=== PATIENT | male | born 1935 | race Caucasian/White ===

== ENCOUNTER 2017-12-25 19:43 | Emergency (ER) | payer OTHER ==
[2017-12-26 00:08] LABS: ADD MAN DIFF? NO
[2017-12-26 00:15] LABS: BASOPHILS % 0.3 % (0.0-2.0); EOSINOPHILS # 0.3 10^3/ul (0.0-0.5); EOSINOPHILS % 3.4 % (0.0-7.0); HEMATOCRIT 32.8 % (42.0-52.0); HEMOGLOBIN 10.7 g/dl (14.0-18.0); LYMPHOCYTES # 1.2 10^3/ul (0.8-2.9); LYMPHOCYTES % 12.8 % (15.0-51.0); MEAN CORPUSCULAR HEMOGLOBIN 29.5 pg (29.0-33.0); MEAN CORPUSCULAR HGB CONC 32.6 g/dl (32.0-37.0); MEAN CORPUSCULAR VOLUME 90.4 fl (82.0-101.0); MEAN PLATELET VOLUME 9.2 fl (7.4-10.4); MONOCYTE # 0.9 10^3/ul (0.3-0.9); MONOCYTES % 9.6 % (0.0-11.0); NEUTROPHIL # 6.8 10^3/ul (1.6-7.5); NEUTROPHILS % 73.4 % (39.0-77.0); PLATELET COUNT 312 10^3/UL (140-415); RED BLOOD COUNT 3.63 10^6/ul (4.70-6.10); RED CELL DISTRIBUTION WIDTH 14.7 % (11.5-14.5)
[2017-12-26 00:15] LABS: WHITE BLOOD COUNT 9.2 10^3/ul (4.8-10.8)
[2017-12-26 00:33] LABS: ALANINE AMINOTRANSFERASE 41 IU/L (13-69); ALBUMIN 3.8 g/dl (3.3-4.9); ALBUMIN/GLOBULIN RATIO 1.11; ALKALINE PHOSPHATASE 99 IU/L (42-121); ANION GAP 12 (8-16); ASPARTATE AMINO TRANSFERASE 31 IU/L (15-46); BILIRUBIN,INDIRECT 0.4 mg/dl (0-1.1); BILIRUBIN,TOTAL 0.4 mg/dl (0.2-1.3); BLOOD UREA NITROGEN 21 mg/dl (7-20); CALCIUM 9.5 mg/dl (8.4-10.2); CARBON DIOXIDE 32 mmol/L (21-31); CHLORIDE 93 mmol/L (97-110); CREATININE 0.86 mg/dl (0.61-1.24); GLUCOSE 124 mg/dl (70-220); LIPASE 63 U/L (23-300); POTASSIUM 4.3 mmol/L (3.5-5.1); SODIUM 133 mmol/L (135-144); TOTAL PROTEIN 7.2 g/dl (6.1-8.1)
[2017-12-26 00:34] LABS: INR 1.15; PROTIME 14.9 Sec (11.9-14.9); PT RATIO 1.2
[2017-12-26 00:35] LABS: PARTIAL THROMBOPLASTIN TIME 31.6 Sec (25.0-35.0)
[2017-12-26] MEDS: SOD CHLORIDE 0.9% 500 ML IV (03:17)
[2017-12-26] MEDS: HYDROCODONE/APAP (5/325) TAB PO (03:18)
== END 2017-12-26 03:36 | disposition home or self-care (01) ==
LOC: E/R 19:43
DX: I82.513 Chronic embolism and thrombosis of femoral vein, bilateral (principal); E86.0 Dehydration; D64.9 Anemia, unspecified; I10 Essential (primary) hypertension; E11.9 Type 2 diabetes mellitus without complications; I25.10 Atherosclerotic heart disease of native coronary artery without angina pectoris; Z79.4 Long term (current) use of insulin; Z79.82 Long term (current) use of aspirin; Z95.1 Presence of aortocoronary bypass graft; Z87.891 Personal history of nicotine dependence
CPT/HCPCS: 36415; 80053; 83690; 85025; 85610; 85730; 93970; 99285-25

== ENCOUNTER 2018-05-16 02:41 | Emergency (ER) | payer OTHER ==
[2018-05-16] MEDS: morphine 2 MG INJ IV (03:09)
[2018-05-16] MEDS: NA PHOSPHATE/BIPHOS 133 ML ENEMA PR (03:09)
[2018-05-16] MEDS: ONDANSETRON 4 MG INJ IV (03:09)
[2018-05-16 03:10] LABS: ADD MAN DIFF? NO
[2018-05-16 03:13] LABS: WHITE BLOOD COUNT 13.3 10^3/ul (4.8-10.8)
[2018-05-16 03:13] LABS: BASOPHILS % 0.2 % (0.0-2.0); EOSINOPHILS # 0.1 10^3/ul (0.0-0.5); EOSINOPHILS % 0.5 % (0.0-7.0); HEMATOCRIT 36.5 % (42.0-52.0); HEMOGLOBIN 11.7 g/dl (14.0-18.0); LYMPHOCYTES # 0.9 10^3/ul (0.8-2.9); LYMPHOCYTES % 7.1 % (15.0-51.0); MEAN CORPUSCULAR HEMOGLOBIN 30.5 pg (29.0-33.0); MEAN CORPUSCULAR HGB CONC 32.1 g/dl (32.0-37.0); MEAN CORPUSCULAR VOLUME 95.1 fl (82.0-101.0); MEAN PLATELET VOLUME 9.9 fl (7.4-10.4); MONOCYTE # 1.1 10^3/ul (0.3-0.9); NEUTROPHIL # 11.1 10^3/ul (1.6-7.5); NEUTROPHILS % 83.7 % (39.0-77.0); PLATELET COUNT 233 10^3/UL (140-415); RED BLOOD COUNT 3.84 10^6/ul (4.70-6.10); RED CELL DISTRIBUTION WIDTH 15.9 % (11.5-14.5)
[2018-05-16 03:32] LABS: ALANINE AMINOTRANSFERASE 32 IU/L (13-69); ALBUMIN 4.2 g/dl (3.3-4.9); ALBUMIN/GLOBULIN RATIO 1.23; ALKALINE PHOSPHATASE 142 IU/L (42-121); ANION GAP 15 (8-16); ASPARTATE AMINO TRANSFERASE 26 IU/L (15-46); BILIRUBIN,INDIRECT 0.9 mg/dl (0-1.1); BILIRUBIN,TOTAL 0.9 mg/dl (0.2-1.3); BLOOD UREA NITROGEN 32 mg/dl (7-20); CALCIUM 9.6 mg/dl (8.4-10.2); CARBON DIOXIDE 28 mmol/L (21-31); CHLORIDE 102 mmol/L (97-110); CREATININE 1.28 mg/dl (0.61-1.24); GLUCOSE 139 mg/dl (70-220); LIPASE 48 U/L (23-300); POTASSIUM 4.2 mmol/L (3.5-5.1); SODIUM 141 mmol/L (135-144); TOTAL PROTEIN 7.6 g/dl (6.1-8.1)
[2018-05-16 03:46] LABS: INR 1.12; PARTIAL THROMBOPLASTIN TIME 29.8 Sec (25.0-35.0); PROTIME 14.6 Sec (11.9-14.9); PT RATIO 1.1
[2018-05-16] MEDS: HYDROmorphONE 0.5 MG/0.5 ML SYG IV (04:12)
[2018-05-16 04:50] LABS: URINE BLOOD (Dip) POC 3+ (NEGATIVE); URINE GLUCOSE (Dip) POC Negative (NEGATIVE); URINE KETONES (Dip) POC Trace (NEGATIVE); URINE LEUKOCYTE EST (Dip) POC 2+ (NEGATIVE); URINE NITRITE (Dip) POC Negative (NEGATIVE); URINE TOTAL PROTEIN POC 2+ (NEGATIVE)
[2018-05-16] MEDS: SOD CHLORIDE 0.9% 500 ML IV (05:02)
[2018-05-16] MEDS: CIPROFLOXACIN 400MG/D5W 200 ML IVPB (05:02)
== END 2018-05-16 06:54 | disposition home or self-care (01) ==
LOC: E/R 02:41
DX: K59.00 Constipation, unspecified (principal); E86.0 Dehydration; D64.9 Anemia, unspecified; I10 Essential (primary) hypertension; E11.9 Type 2 diabetes mellitus without complications; I25.10 Atherosclerotic heart disease of native coronary artery without angina pectoris; R10.84 Generalized abdominal pain; Z46.6 Encounter for fitting and adjustment of urinary device; Z95.1 Presence of aortocoronary bypass graft; Z87.891 Personal history of nicotine dependence; Z79.4 Long term (current) use of insulin; Z79.82 Long term (current) use of aspirin
CPT/HCPCS: 36415; 74176; 80053; 81003; 83690; 85025; 85610; 85730; 96374; 96375; 99285-25

== ENCOUNTER 2018-05-22 19:50 | Inpatient (IN) | payer OTHER ==
[2018-05-23] MEDS ORDERED: SOD CHLORIDE 0.9% 500 ML IV (01:00)
[2018-05-23] MEDS ORDERED: LORAZEPAM 2 MG INJ IV (01:00)
[2018-05-23] MEDS: LIDOCAINE 2% JELLY 5 ML TOP ×2 (01:08→05:18)
[2018-05-23] MEDS: HYDROmorphONE 0.5 MG/0.5 ML SYG IV ×3 (01:08→05:17)
[2018-05-23 04:42] LABS: URINE PH (Dip) POC 5.5 (5.0-8.5)
[2018-05-23 04:42] LABS: URINE BLOOD (Dip) POC 3+ (NEGATIVE); URINE GLUCOSE (Dip) POC Negative (NEGATIVE); URINE KETONES (Dip) POC 1+ (NEGATIVE); URINE LEUKOCYTE EST (Dip) POC 3+ (NEGATIVE); URINE NITRITE (Dip) POC Negative (NEGATIVE); URINE TOTAL PROTEIN POC 3+ (NEGATIVE)
[2018-05-23 04:43] LABS: WHITE BLOOD COUNT 6.9 10^3/ul (4.8-10.8)
[2018-05-23 04:43] LABS: ADD MAN DIFF? NO; BASOPHILS % 0.4 % (0.0-2.0); EOSINOPHILS # 0.2 10^3/ul (0.0-0.5); EOSINOPHILS % 3.2 % (0.0-7.0); HEMATOCRIT 34.8 % (42.0-52.0); LYMPHOCYTES # 1.1 10^3/ul (0.8-2.9); LYMPHOCYTES % 15.6 % (15.0-51.0); MEAN CORPUSCULAR HEMOGLOBIN 30.3 pg (29.0-33.0); MEAN CORPUSCULAR HGB CONC 31.6 g/dl (32.0-37.0); MEAN CORPUSCULAR VOLUME 95.9 fl (82.0-101.0); MEAN PLATELET VOLUME 9.4 fl (7.4-10.4); MONOCYTE # 0.7 10^3/ul (0.3-0.9); MONOCYTES % 9.8 % (0.0-11.0); NEUTROPHIL # 4.9 10^3/ul (1.6-7.5); NEUTROPHILS % 70.4 % (39.0-77.0); PLATELET COUNT 232 10^3/UL (140-415); RED BLOOD COUNT 3.63 10^6/ul (4.70-6.10); RED CELL DISTRIBUTION WIDTH 15.6 % (11.5-14.5)
[2018-05-23 04:58] LABS: ADD UMIC YES; UR ASCORBIC ACID NEGATIVE (NEGATIVE); UR BACTERIA FEW /HPF (NONE SEEN); UR BILIRUBIN (Dip) NEGATIVE (NEGATIVE); UR BLOOD (Dip) 3+ mg/dL (NEGATIVE); UR CLARITY CLOUDY (CLEAR); UR COLOR RED (YELLOW); UR GLUCOSE (Dip) 1+ mg/dL (NEGATIVE); UR KETONES (Dip) NEGATIVE (NEGATIVE); UR LEUKOCYTE ESTERASE (Dip) NEGATIVE Leu/ul (NEGATIVE); UR MUCUS MANY /HPF (NONE SEEN); UR NITRITE (Dip) NEGATIVE (NEGATIVE); UR RBC > 182 /HPF (0-5); UR SPECIFIC GRAVITY (Dip) 1.024 (1.003-1.030); UR TOTAL PROTEIN (Dip) 2+ mg/dl (NEGATIVE); UR UROBILINOGEN (Dip) NEGATIVE (NEGATIVE); UR WBC 6 /HPF (0-5)
[2018-05-23 05:03] LABS: INR 1.19; PARTIAL THROMBOPLASTIN TIME 31.5 Sec (25.0-35.0); PROTIME 15.3 Sec (11.9-14.9); PT RATIO 1.2
[2018-05-23 05:11] LABS: ANION GAP 12 (8-16); BLOOD UREA NITROGEN 39 mg/dl (7-20); CALCIUM 9.3 mg/dl (8.4-10.2); CARBON DIOXIDE 30 mmol/L (21-31); CHLORIDE 103 mmol/L (97-110); CREATININE 1.36 mg/dl (0.61-1.24); GLUCOSE 112 mg/dl (70-220); POTASSIUM 4.6 mmol/L (3.5-5.1); SODIUM 140 mmol/L (135-144)
[2018-05-23] MEDS: SOD CHLORIDE 0.9% 500 ML IV (05:20)
[2018-05-23] MEDS: CEFTRIAXONE 1 GM/50 ML (PMX) 50 ML IVPB (06:09)
[2018-05-23] MEDS ORDERED: LORAZEPAM 0.5 MG TAB PO (10:00)
[2018-05-23] MEDS ORDERED: NA PHOSPHATE/BIPHOS 66.6 ML ENEMA PR (10:00)
[2018-05-23] MEDS ORDERED: NACL 0.9% 3 ML SYG IV (10:00)
[2018-05-23] MEDS ORDERED: DOCUSATE SODIUM 100 MG CAP PO (10:00)
[2018-05-23] MEDS ORDERED: ONDANSETRON 4 MG INJ IV (10:00)
[2018-05-23] MEDS ORDERED: BISACODYL 10 MG SUPP PR (10:00)
[2018-05-23] MEDS: FAMOTIDINE 20 MG TAB PO (10:00)
[2018-05-23] MEDS ORDERED: HYDROCODONE/APAP (5/325) TAB PO (10:00)
[2018-05-23] MEDS ORDERED: MAGNESIUM HYDROXIDE 30ML CUP PO (10:00)
[2018-05-23] MEDS ORDERED: ACETAMINOPHEN 325 MG TAB PO (10:00)
[2018-05-23] MEDS: BISACODYL 10 MG SUPP PR (11:23)
[2018-05-23] MEDS ORDERED: INSULIN ASPART [NOVOLOG] 3 ML PEN SC ×2 (11:40→12:30)
[2018-05-23] MEDS ORDERED: PE/SHARK OIL/MO/PETROL 30 GM OINT PR (13:30)
[2018-05-23] MEDS ORDERED: INSULIN GLARGINE [LANTus] (100 UNITS/ML) SYG SC (20:00)
[2018-05-23] MEDS ORDERED: APIXABAN 5 MG TABLET PO (21:00)
[2018-05-23] MEDS ORDERED: FAMOTIDINE 20 MG TAB PO (21:00)
[2018-05-23] MEDS ORDERED: ATORVASTATIN 40 MG TAB GTB (21:00)
[2018-05-23] MEDS ORDERED: DORZOLAMIDE/TIMOLOL 10 ML OPH BOTH EYES (21:00)
[2018-05-23] MEDS ORDERED: DOXAZOSIN 1 MG TAB PO (21:00)
[2018-05-24] MEDS ORDERED: ACCU-CHEK XX (02:00)
[2018-05-24] MEDS ORDERED: CEFTRIAXONE 1 GM/50 ML (PMX) 50 ML IVPB (06:00)
[2018-05-24] MEDS ORDERED: CITALOPRAM 20 MG TAB GTB (09:00)
[2018-05-24] MEDS ORDERED: CHOLECALCIFEROL 1,000 UNIT TAB PO (09:00)
[2018-05-24] MEDS ORDERED: NON-FORMULARY/PATIENT OWN MED (Lactobacillus Acidophilus* (Lactinex*) 1 TAB) GTB (09:00)
[2018-05-24] MEDS ORDERED: LISINOPRIL 5 MG TAB PO (09:00)
[2018-05-24] MEDS ORDERED: LORATADINE 10 MG TAB PO (09:00)
[2018-05-24] MEDS ORDERED: POLYETHYLENE GLYCOL 17 GM PACKET PO (09:00)
[2018-05-24] MEDS ORDERED: CITALOPRAM 20 MG TAB PO (09:00)
[2018-05-24] MEDS ORDERED: BUPROPION (XL) 150 MG TAB PO (09:00)
[2018-05-24] MEDS ORDERED: DOCUSATE SODIUM 10 MG/ML (10ML CUP) PO (09:00)
[2018-05-24] MEDS ORDERED: AMIODARONE 200 MG TAB PO (09:00)
[2018-05-24] MEDS ORDERED: ASCORBIC ACID 500 MG TAB PO (09:00)
[2018-05-27] MEDS ORDERED: METHOTREXATE 2.5 MG TAB PO (09:00)
== END 2018-05-23 17:35 | disposition home health service (06) | DRG 699 ==
LOC: E/R 19:50 → MS1 05-23 08:32
PROC: 0T2BX0Z Change Drainage Device in Bladder, External Approach (ICD-10-PCS; principal; 2018-05-23)
DX: T83.098A Other mechanical complication of other urinary catheter, initial encounter (principal); N17.9 Acute kidney failure, unspecified; I69.951 Hemiplegia and hemiparesis following unspecified cerebrovascular disease affecting right dominant side; Y84.6 Urinary catheterization as the cause of abnormal reaction of the patient, or of later complication, without mention of misadventure at the time of the procedure; R33.9 Retention of urine, unspecified; D64.9 Anemia, unspecified; K59.00 Constipation, unspecified; I48.91 Unspecified atrial fibrillation; I25.10 Atherosclerotic heart disease of native coronary artery without angina pectoris; Z95.1 Presence of aortocoronary bypass graft; E11.9 Type 2 diabetes mellitus without complications; E78.5 Hyperlipidemia, unspecified; I10 Essential (primary) hypertension; I69.920 Aphasia following unspecified cerebrovascular disease; N40.0 Benign prostatic hyperplasia without lower urinary tract symptoms; I48.2 Chronic atrial fibrillation; F32.9 Major depressive disorder, single episode, unspecified; Y92.009 Unspecified place in unspecified non-institutional (private) residence as the place of occurrence of the external cause
CPT/HCPCS: 36415; 74176; 80048; 81001; 81003; 82962; 85025; 85610; 85730; 87086; 96374; 96375; 96376; 99285-25

== ENCOUNTER 2018-05-27 14:14 | Emergency (ER) | payer OTHER | END 2018-05-27 15:46 | disposition home or self-care (01) | LOC: E/R 14:14 | DX: N40.1 Benign prostatic hyperplasia with lower urinary tract symptoms (principal); R33.9 Retention of urine, unspecified; I10 Essential (primary) hypertension; Z79.01 Long term (current) use of anticoagulants; Z95.1 Presence of aortocoronary bypass graft | CPT/HCPCS: 76942; 99284-25 ==

== ENCOUNTER 2018-08-18 10:24 | Inpatient (IN) | payer OTHER ==
[2018-08-18 12:02] LABS: ADD MAN DIFF? NO
[2018-08-18 12:05] LABS: WHITE BLOOD COUNT 8.3 10^3/ul (4.8-10.8)
[2018-08-18 12:05] LABS: BASOPHILS % 0.4 % (0.0-2.0); EOSINOPHILS # 0.1 10^3/ul (0.0-0.5); EOSINOPHILS % 1.6 % (0.0-7.0); HEMATOCRIT 34.3 % (42.0-52.0); HEMOGLOBIN 11.1 g/dl (14.0-18.0); LYMPHOCYTES # 1.2 10^3/ul (0.8-2.9); LYMPHOCYTES % 14.3 % (15.0-51.0); MEAN CORPUSCULAR HEMOGLOBIN 29.4 pg (29.0-33.0); MEAN CORPUSCULAR HGB CONC 32.4 g/dl (32.0-37.0); MEAN PLATELET VOLUME 9.8 fl (7.4-10.4); MONOCYTE # 0.8 10^3/ul (0.3-0.9); MONOCYTES % 9.1 % (0.0-11.0); NEUTROPHIL # 6.1 10^3/ul (1.6-7.5); NEUTROPHILS % 73.5 % (39.0-77.0); PLATELET COUNT 237 10^3/UL (140-415); RED BLOOD COUNT 3.77 10^6/ul (4.70-6.10); RED CELL DISTRIBUTION WIDTH 14.9 % (11.5-14.5)
[2018-08-18] MEDS: ONDANSETRON 4 MG INJ IV (12:06)
[2018-08-18] MEDS: morphine 4 MG/ML VIAL IV (12:07)
[2018-08-18 12:24] LABS: ANION GAP 13 (8-16); BLOOD UREA NITROGEN 27 mg/dl (7-20); CALCIUM 9.3 mg/dl (8.4-10.2); CARBON DIOXIDE 29 mmol/L (21-31); CHLORIDE 98 mmol/L (97-110); CREATININE 1.08 mg/dl (0.61-1.24); GLUCOSE 114 mg/dl (70-220); INR 1.11; POTASSIUM 4.9 mmol/L (3.5-5.1); PROTIME 14.5 Sec (11.9-14.9); PT RATIO 1.1; SODIUM 135 mmol/L (135-144)
[2018-08-18 12:25] LABS: PARTIAL THROMBOPLASTIN TIME 32.1 Sec (23.0-35.0)
[2018-08-18 12:36] LABS: TROPONIN-I < 0.012 ng/ml (0.000-0.120)
[2018-08-18 13:19] LABS: ADD UMIC YES; UR ASCORBIC ACID NEGATIVE (NEGATIVE); UR BILIRUBIN (Dip) NEGATIVE (NEGATIVE); UR BLOOD (Dip) 3+ mg/dL (NEGATIVE); UR CLARITY CLOUDY (CLEAR); UR COLOR RED (YELLOW); UR GLUCOSE (Dip) NEGATIVE (NEGATIVE); UR KETONES (Dip) NEGATIVE (NEGATIVE); UR LEUKOCYTE ESTERASE (Dip) 2+ Leu/ul (NEGATIVE); UR MUCUS FEW /HPF (NONE SEEN); UR NITRITE (Dip) POSITIVE (NEGATIVE); UR NONSQUAMOUS EPITHELIAL CELL 11 /HPF (NONE SEEN); UR RBC > 182 /HPF (0-5); UR SPECIFIC GRAVITY (Dip) 1.018 (1.003-1.030); UR TOTAL PROTEIN (Dip) 2+ mg/dl (NEGATIVE); UR UROBILINOGEN (Dip) NEGATIVE (NEGATIVE); UR WBC 163 /HPF (0-5)
[2018-08-18] MEDS ORDERED: ACETAMINOPHEN 325 MG TAB PO (13:30)
[2018-08-18] MEDS ORDERED: ONDANSETRON 4 MG INJ IV ×2 (13:30→15:00)
[2018-08-18] MEDS: HYDROmorphONE 2 MG/ML SYG IV ×3 (13:46→20:56)
[2018-08-18] MEDS: CEFTRIAXONE 1 GM/50 ML (PMX) 50 ML IVPB (14:23)
[2018-08-18] MEDS ORDERED: BISACODYL 10 MG SUPP PR (15:00)
[2018-08-18] MEDS ORDERED: DOCUSATE SODIUM 100 MG CAP PO (15:00)
[2018-08-18] MEDS ORDERED: NACL 0.9% 3 ML SYG IV (15:00)
[2018-08-18] MEDS: SOD CHLORIDE 0.9% 1,000 ML IV (15:59)
[2018-08-18] MEDS: ATORVASTATIN 40 MG TAB PO (20:56)
[2018-08-18] MEDS: APIXABAN 5 MG TABLET PO (20:56)
[2018-08-18] MEDS: MELATONIN 5 MG TABLET PO (20:56)
[2018-08-18] MEDS: MYCOPHENOLATE 250 MG CAP PO (20:56)
[2018-08-18] MEDS: LACTOBACILLUS RHAMNOSUS CAP PO (21:13)
[2018-08-19] MEDS: HYDROmorphONE 2 MG/ML SYG IV ×4 (01:31→17:18)
[2018-08-19] MEDS: SOD CHLORIDE 0.9% 1,000 ML IV ×3 (05:00→20:32)
[2018-08-19] MEDS: PANTOPRAZOLE (EC) 40 MG TAB PO (06:04)
[2018-08-19 07:53] LABS: ADD MAN DIFF? NO
[2018-08-19 07:57] LABS: BASOPHILS % 0.2 % (0.0-2.0); EOSINOPHILS % 0.4 % (0.0-7.0); HEMATOCRIT 33.7 % (42.0-52.0); HEMOGLOBIN 10.5 g/dl (14.0-18.0); LYMPHOCYTES # 0.7 10^3/ul (0.8-2.9); LYMPHOCYTES % 6.8 % (15.0-51.0); MEAN CORPUSCULAR HEMOGLOBIN 28.8 pg (29.0-33.0); MEAN CORPUSCULAR HGB CONC 31.2 g/dl (32.0-37.0); MEAN CORPUSCULAR VOLUME 92.3 fl (82.0-101.0); MEAN PLATELET VOLUME 9.8 fl (7.4-10.4); NEUTROPHIL # 8.8 10^3/ul (1.6-7.5); PLATELET COUNT 242 10^3/UL (140-415); RED BLOOD COUNT 3.65 10^6/ul (4.70-6.10); RED CELL DISTRIBUTION WIDTH 14.7 % (11.5-14.5)
[2018-08-19 07:57] LABS: WHITE BLOOD COUNT 10.6 10^3/ul (4.8-10.8)
[2018-08-19 08:21] LABS: ANION GAP 10 (8-16); BLOOD UREA NITROGEN 36 mg/dl (7-20); CALCIUM 8.9 mg/dl (8.4-10.2); CARBON DIOXIDE 27 mmol/L (21-31); CHLORIDE 107 mmol/L (97-110); CREATININE 1.47 mg/dl (0.61-1.24); GLUCOSE 110 mg/dl (70-220); SODIUM 139 mmol/L (135-144)
[2018-08-19] MEDS: LORATADINE 10 MG TAB PO (08:43)
[2018-08-19] MEDS: CITALOPRAM 20 MG TAB PO (08:43)
[2018-08-19] MEDS: MYCOPHENOLATE 250 MG CAP PO ×2 (08:45→20:40)
[2018-08-19] MEDS: AMIODARONE 200 MG TAB PO (08:45)
[2018-08-19] MEDS: HYDROCODONE/APAP (5/325) TAB PO (08:46)
[2018-08-19] MEDS: LACTOBACILLUS RHAMNOSUS CAP PO ×2 (08:46→20:33)
[2018-08-19] MEDS: LISINOPRIL 20 MG TAB PO (08:46)
[2018-08-19] MEDS: BUPROPION (XL) 150 MG TAB PO (08:46)
[2018-08-19] MEDS: CHOLECALCIFEROL 1,000 UNIT TAB PO (08:46)
[2018-08-19] MEDS ORDERED: NON-FORMULARY/PATIENT OWN MED (Lactobacillus Acidophilus (Probiotic) 1 CAP) PO (09:00)
[2018-08-19] MEDS: morphine 10 MG INJ IV (09:38)
[2018-08-19] MEDS: POLYETHYLENE GLYCOL 17 GM PACKET NGT (12:05)
[2018-08-19] MEDS: hydrOXYzine HCL 25 MG TAB PO (12:07)
[2018-08-19] MEDS: oxyCODONE (CR) 15 MG TAB [oxyCONTIN] PO ×2 (12:07→20:33)
[2018-08-19] MEDS: PHENAZOPYRIDINE 200 MG TAB PO ×2 (12:22→20:32)
[2018-08-19] MEDS: CEFTRIAXONE 1 GM/50 ML (PMX) 50 ML IVPB (13:37)
[2018-08-19] MEDS: ATORVASTATIN 40 MG TAB PO (20:32)
[2018-08-19] MEDS: MELATONIN 5 MG TABLET PO (20:33)
[2018-08-20] MEDS: SOD CHLORIDE 0.9% 1,000 ML IV ×2 (04:50→15:54)
[2018-08-20] MEDS: PANTOPRAZOLE (EC) 40 MG TAB PO (06:40)
[2018-08-20] MEDS: HYDROmorphONE 2 MG/ML SYG IV ×2 (06:40→17:49)
[2018-08-20 07:35] LABS: ADD MAN DIFF? NO
[2018-08-20 07:39] LABS: BASOPHILS % 0.2 % (0.0-2.0); EOSINOPHILS # 0.1 10^3/ul (0.0-0.5); EOSINOPHILS % 0.7 % (0.0-7.0); HEMATOCRIT 30.8 % (42.0-52.0); HEMOGLOBIN 9.5 g/dl (14.0-18.0); LYMPHOCYTES # 0.9 10^3/ul (0.8-2.9); LYMPHOCYTES % 8.8 % (15.0-51.0); MEAN CORPUSCULAR HEMOGLOBIN 28.7 pg (29.0-33.0); MEAN CORPUSCULAR HGB CONC 30.8 g/dl (32.0-37.0); MEAN CORPUSCULAR VOLUME 93.1 fl (82.0-101.0); MEAN PLATELET VOLUME 9.3 fl (7.4-10.4); MONOCYTE # 0.9 10^3/ul (0.3-0.9); MONOCYTES % 9.2 % (0.0-11.0); NEUTROPHILS % 80.7 % (39.0-77.0); PLATELET COUNT 197 10^3/UL (140-415); RED BLOOD COUNT 3.31 10^6/ul (4.70-6.10); RED CELL DISTRIBUTION WIDTH 15.1 % (11.5-14.5)
[2018-08-20 07:39] LABS: WHITE BLOOD COUNT 9.9 10^3/ul (4.8-10.8)
[2018-08-20 07:58] LABS: INR 1.24; PROTIME 15.8 Sec (11.9-14.9); PT RATIO 1.2
[2018-08-20 08:12] LABS: ALANINE AMINOTRANSFERASE 37 IU/L (13-69); ALBUMIN 3.3 g/dl (3.3-4.9); ALKALINE PHOSPHATASE 112 IU/L (42-121); ANION GAP 8 (5-13); ASPARTATE AMINO TRANSFERASE 49 IU/L (15-46); BILIRUBIN,INDIRECT 0.5 mg/dl (0-1.1); BILIRUBIN,TOTAL 0.5 mg/dl (0.2-1.3); BLOOD UREA NITROGEN 46 mg/dl (7-20); CALCIUM 8.7 mg/dl (8.4-10.2); CARBON DIOXIDE 24 mmol/L (21-31); CHLORIDE 110 mmol/L (97-110); GLUCOSE 115 mg/dl (70-220); POTASSIUM 4.6 mmol/L (3.5-5.1); SODIUM 142 mmol/L (135-144); TOTAL PROTEIN 6.6 g/dl (6.1-8.1)
[2018-08-20] MEDS: MYCOPHENOLATE 250 MG CAP PO ×2 (08:58→21:22)
[2018-08-20] MEDS: CITALOPRAM 20 MG TAB PO (08:58)
[2018-08-20] MEDS: PHENAZOPYRIDINE 200 MG TAB PO ×3 (08:58→21:21)
[2018-08-20] MEDS: LACTOBACILLUS RHAMNOSUS CAP PO ×2 (08:58→21:22)
[2018-08-20] MEDS: LORATADINE 10 MG TAB PO (08:58)
[2018-08-20] MEDS: POLYETHYLENE GLYCOL 17 GM PACKET NGT (08:58)
[2018-08-20] MEDS: CHOLECALCIFEROL 1,000 UNIT TAB PO (08:58)
[2018-08-20] MEDS: BUPROPION (XL) 150 MG TAB PO (08:58)
[2018-08-20] MEDS: oxyCODONE (CR) 15 MG TAB [oxyCONTIN] PO ×2 (08:59→21:22)
[2018-08-20] MEDS: LISINOPRIL 20 MG TAB PO (09:00)
[2018-08-20] MEDS: AMIODARONE 200 MG TAB PO (09:00)
[2018-08-20] MEDS ORDERED: VANCOMYCIN IV PER PHARMACY XX (10:30)
[2018-08-20] MEDS: CEFEPIME 2GM/50 ML (PMX) 50 ML IVPB ×2 (12:11→21:22)
[2018-08-20] MEDS: VANCOMYCIN 1.25 GM in SOD CHLORIDE 0.9% 250 ML IVPB (12:51)
[2018-08-20] MEDS: ATORVASTATIN 40 MG TAB PO (21:22)
[2018-08-20] MEDS: MELATONIN 5 MG TABLET PO (21:23)
[2018-08-21] MEDS: SOD CHLORIDE 0.9% 1,000 ML IV ×4 (01:22→23:05)
[2018-08-21 06:45] LABS: ADD MAN DIFF? NO
[2018-08-21] MEDS: PANTOPRAZOLE (EC) 40 MG TAB PO (06:46)
[2018-08-21 06:55] LABS: WHITE BLOOD COUNT 8.9 10^3/ul (4.8-10.8)
[2018-08-21 06:55] LABS: BASOPHILS % 0.3 % (0.0-2.0); EOSINOPHILS # 0.2 10^3/ul (0.0-0.5); HEMATOCRIT 27.8 % (42.0-52.0); HEMOGLOBIN 8.6 g/dl (14.0-18.0); LYMPHOCYTES # 0.9 10^3/ul (0.8-2.9); LYMPHOCYTES % 10.4 % (15.0-51.0); MEAN CORPUSCULAR HGB CONC 30.9 g/dl (32.0-37.0); MEAN CORPUSCULAR VOLUME 93.6 fl (82.0-101.0); MONOCYTE # 0.7 10^3/ul (0.3-0.9); MONOCYTES % 7.6 % (0.0-11.0); NEUTROPHIL # 7.1 10^3/ul (1.6-7.5); NEUTROPHILS % 79.3 % (39.0-77.0); PLATELET COUNT 209 10^3/UL (140-415); RED BLOOD COUNT 2.97 10^6/ul (4.70-6.10); RED CELL DISTRIBUTION WIDTH 15.1 % (11.5-14.5)
[2018-08-21] MEDS ORDERED: ONDANSETRON 4 MG INJ (07:00)
[2018-08-21] MEDS ORDERED: SUCCINYLCHOLINE CHLORIDE 100 MG/5 ML SYG IV (07:00)
[2018-08-21 07:26] LABS: ANION GAP 5 (5-13); BLOOD UREA NITROGEN 41 mg/dl (7-20); CALCIUM 8.9 mg/dl (8.4-10.2); CARBON DIOXIDE 28 mmol/L (21-31); CHLORIDE 105 mmol/L (97-110); CREATININE 1.09 mg/dl (0.61-1.24); GLUCOSE 116 mg/dl (70-220); POTASSIUM 4.6 mmol/L (3.5-5.1); SODIUM 138 mmol/L (135-144)
[2018-08-21] MEDS: MYCOPHENOLATE 250 MG CAP PO ×2 (08:29→21:24)
[2018-08-21] MEDS: POLYETHYLENE GLYCOL 17 GM PACKET NGT (08:29)
[2018-08-21] MEDS: PHENAZOPYRIDINE 200 MG TAB PO ×3 (08:30→21:24)
[2018-08-21] MEDS: BUPROPION (XL) 150 MG TAB PO (08:30)
[2018-08-21] MEDS: LISINOPRIL 20 MG TAB PO (08:30)
[2018-08-21] MEDS: LACTOBACILLUS RHAMNOSUS CAP PO ×3 (08:30→21:24)
[2018-08-21] MEDS: AMIODARONE 200 MG TAB PO ×2 (08:31→08:53)
[2018-08-21] MEDS: CHOLECALCIFEROL 1,000 UNIT TAB PO ×2 (08:31→08:54)
[2018-08-21] MEDS: LORATADINE 10 MG TAB PO ×2 (08:31→08:53)
[2018-08-21] MEDS: CITALOPRAM 20 MG TAB PO ×2 (08:37→08:53)
[2018-08-21] MEDS: oxyCODONE (CR) 15 MG TAB [oxyCONTIN] PO ×2 (08:38→21:24)
[2018-08-21] MEDS: CEFEPIME 2GM/50 ML (PMX) 50 ML IVPB ×2 (08:56→21:23)
[2018-08-21] MEDS: VANCOMYCIN 500MG/NS (PMX) 100 ML IVPB (11:42)
[2018-08-21] MEDS ORDERED: MIDAZOLAM 1 MG/ML 2 ML INJ (16:23)
[2018-08-21] MEDS ORDERED: FENTAnyl 50 MCG/ML VIAL (16:23)
[2018-08-21] MEDS ORDERED: CEFAZOLIN 1 GM INJ (16:24)
[2018-08-21] MEDS ORDERED: METOCLOPRAMIDE 10 MG INJ (16:26)
[2018-08-21] MEDS ORDERED: LIDOCAINE 2% (SDV) 5 ML INJ (16:26)
[2018-08-21] MEDS ORDERED: PROPOFOL 20 ML (16:26)
[2018-08-21] MEDS ORDERED: BUPIVACAINE 0.25% (MPF) 30 ML INJ (17:37)
[2018-08-21] MEDS ORDERED: LIDOCAINE 2% (MDV) 20 ML INJ ×2 (18:04)
[2018-08-21] MEDS ORDERED: ETOMIDATE 20 MG INJ (18:11)
[2018-08-21] MEDS ORDERED: SUGAMMADEX SODIUM 200 MG/2 ML VIAL IV (18:32)
[2018-08-21] MEDS ORDERED: EPHEDrine SULFATE 50 MG/5 ML SYG IV (19:00)
[2018-08-21] MEDS ORDERED: ALBUMIN HUMAN 5% 250 ML IV (19:00)
[2018-08-21] MEDS ORDERED: FENTAnyl 50 MCG/ML VIAL IV ×2 (19:00)
[2018-08-21] MEDS ORDERED: hydrALAzine 20 MG INJ IV (19:00)
[2018-08-21] MEDS ORDERED: KETOROLAC 30 MG INJ IV (19:00)
[2018-08-21] MEDS ORDERED: IPRATROPIUM (NEB) 0.5 MG/2.5 ML AMP HHN (19:00)
[2018-08-21] MEDS ORDERED: HYDROmorphONE 1 MG/5 ML IV SYRINGE IV (19:00)
[2018-08-21] MEDS ORDERED: MIDAZOLAM 1 MG/ML 2 ML INJ IV (19:00)
[2018-08-21] MEDS ORDERED: LEVALBUTEROL (NEB) 1.25 MG/0.5 ML AMP HHN (19:00)
[2018-08-21] MEDS ORDERED: LABETALOL HCL 20MG INJ IV (19:00)
[2018-08-21] MEDS ORDERED: ONDANSETRON 4 MG INJ IV (19:00)
[2018-08-21] MEDS ORDERED: HALOPERIDOL 5 MG INJ IV (19:00)
[2018-08-21] MEDS ORDERED: LORAZEPAM 2 MG INJ IV (19:00)
[2018-08-21] MEDS ORDERED: MEPERIDINE 25 MG INJ IV (19:00)
[2018-08-21] MEDS ORDERED: DIPHENHYDRAMINE 50 MG INJ IV (19:00)
[2018-08-21] MEDS: HYDROmorphONE 1 MG/5 ML IV SYRINGE IV (19:52)
[2018-08-21] MEDS: ATORVASTATIN 40 MG TAB PO (21:23)
[2018-08-21] MEDS: MELATONIN 5 MG TABLET PO (21:23)
[2018-08-22] MEDS: HYDROmorphONE 2 MG/ML SYG IV ×4 (01:33→17:48)
[2018-08-22] MEDS: PANTOPRAZOLE (EC) 40 MG TAB PO (06:00)
[2018-08-22 06:11] LABS: ADD MAN DIFF? NO
[2018-08-22 06:14] LABS: BASOPHILS % 0.2 % (0.0-2.0); EOSINOPHILS # 0.2 10^3/ul (0.0-0.5); EOSINOPHILS % 1.7 % (0.0-7.0); HEMATOCRIT 29.6 % (42.0-52.0); HEMOGLOBIN 9.3 g/dl (14.0-18.0); LYMPHOCYTES # 0.6 10^3/ul (0.8-2.9); LYMPHOCYTES % 6.9 % (15.0-51.0); MEAN CORPUSCULAR HEMOGLOBIN 28.7 pg (29.0-33.0); MEAN CORPUSCULAR HGB CONC 31.4 g/dl (32.0-37.0); MEAN CORPUSCULAR VOLUME 91.4 fl (82.0-101.0); MEAN PLATELET VOLUME 10.2 fl (7.4-10.4); MONOCYTE # 0.7 10^3/ul (0.3-0.9); MONOCYTES % 8.1 % (0.0-11.0); NEUTROPHIL # 7.5 10^3/ul (1.6-7.5); NEUTROPHILS % 82.7 % (39.0-77.0); PLATELET COUNT 225 10^3/UL (140-415); RED BLOOD COUNT 3.24 10^6/ul (4.70-6.10); RED CELL DISTRIBUTION WIDTH 14.6 % (11.5-14.5)
[2018-08-22 06:34] LABS: ANION GAP 8 (5-13); BLOOD UREA NITROGEN 31 mg/dl (7-20); CALCIUM 8.6 mg/dl (8.4-10.2); CARBON DIOXIDE 22 mmol/L (21-31); CHLORIDE 111 mmol/L (97-110); GLUCOSE 106 mg/dl (70-220); POTASSIUM 3.9 mmol/L (3.5-5.1); SODIUM 141 mmol/L (135-144)
[2018-08-22] MEDS: SOD CHLORIDE 0.9% 1,000 ML IV ×3 (07:51→17:49)
[2018-08-22] MEDS: AMIODARONE 200 MG TAB PO (08:35)
[2018-08-22] MEDS: LACTOBACILLUS RHAMNOSUS CAP PO ×2 (08:36→21:04)
[2018-08-22] MEDS: CITALOPRAM 20 MG TAB PO (08:37)
[2018-08-22] MEDS: LORATADINE 10 MG TAB PO (08:37)
[2018-08-22] MEDS: CHOLECALCIFEROL 1,000 UNIT TAB PO (08:37)
[2018-08-22] MEDS: LISINOPRIL 20 MG TAB PO (08:38)
[2018-08-22] MEDS: CEFEPIME 2GM/50 ML (PMX) 50 ML IVPB ×2 (08:53→20:59)
[2018-08-22] MEDS: POLYETHYLENE GLYCOL 17 GM PACKET NGT (08:53)
[2018-08-22] MEDS: BUPROPION (XL) 150 MG TAB PO (09:00)
[2018-08-22] MEDS: oxyCODONE (CR) 15 MG TAB [oxyCONTIN] PO ×2 (09:00→21:02)
[2018-08-22] MEDS: PHENAZOPYRIDINE 200 MG TAB PO ×3 (09:00→21:00)
[2018-08-22] MEDS: MYCOPHENOLATE 250 MG CAP PO ×2 (09:00→21:00)
[2018-08-22] MEDS: VANCOMYCIN 500MG/NS (PMX) 100 ML IVPB (12:17)
[2018-08-22] MEDS: ATORVASTATIN 40 MG TAB PO (21:00)
[2018-08-22] MEDS: MELATONIN 5 MG TABLET PO (21:00)
[2018-08-23] MEDS: SOD CHLORIDE 0.9% 1,000 ML IV ×2 (04:13→15:48)
[2018-08-23] MEDS: PANTOPRAZOLE (EC) 40 MG TAB PO (05:30)
[2018-08-23] MEDS: HYDROCODONE/APAP (5/325) TAB PO ×3 (06:01→23:18)
[2018-08-23] MEDS: CEFEPIME 2GM/50 ML (PMX) 50 ML IVPB ×2 (09:08→20:19)
[2018-08-23] MEDS: BUPROPION (XL) 150 MG TAB PO (09:09)
[2018-08-23] MEDS: POLYETHYLENE GLYCOL 17 GM PACKET NGT (09:09)
[2018-08-23] MEDS: PHENAZOPYRIDINE 200 MG TAB PO ×3 (09:10→20:20)
[2018-08-23] MEDS: CITALOPRAM 20 MG TAB PO (09:10)
[2018-08-23] MEDS: CHOLECALCIFEROL 1,000 UNIT TAB PO (09:10)
[2018-08-23] MEDS: oxyCODONE (CR) 15 MG TAB [oxyCONTIN] PO ×2 (09:11→20:20)
[2018-08-23] MEDS: MYCOPHENOLATE 250 MG CAP PO ×2 (09:12→20:20)
[2018-08-23] MEDS: LORATADINE 10 MG TAB PO (09:12)
[2018-08-23] MEDS: AMIODARONE 200 MG TAB PO (09:12)
[2018-08-23] MEDS: LACTOBACILLUS RHAMNOSUS CAP PO ×2 (09:19→20:20)
[2018-08-23] MEDS: LISINOPRIL 20 MG TAB PO (10:42)
[2018-08-23 12:08] LABS: VANCOMYCIN,TROUGH < 5.0 ug/ml (10.0-20.0)
[2018-08-23] MEDS: VANCOMYCIN 500MG/NS (PMX) 100 ML IVPB (12:18)
[2018-08-23] MEDS: ATORVASTATIN 40 MG TAB PO (20:20)
[2018-08-23] MEDS: MELATONIN 5 MG TABLET PO (20:20)
[2018-08-23] MEDS: MAGNESIUM HYDROXIDE 30ML CUP PO (23:18)
[2018-08-23] MEDS: VANCOMYCIN 750 MG in SOD CHLORIDE 0.9% 150 ML IVPB (23:19)
[2018-08-24] MEDS: HYDROmorphONE 2 MG/ML SYG IV ×2 (01:23→05:06)
[2018-08-24] MEDS: SOD CHLORIDE 0.9% 1,000 ML IV ×4 (04:33→23:30)
[2018-08-24] MEDS: PANTOPRAZOLE (EC) 40 MG TAB PO (06:00)
[2018-08-24 06:57] LABS: ADD MAN DIFF? NO
[2018-08-24] MEDS ORDERED: NALOXONE 2 MG SYG (07:00)
[2018-08-24 07:04] LABS: BASOPHILS % 0.2 % (0.0-2.0); EOSINOPHILS # 0.2 10^3/ul (0.0-0.5); EOSINOPHILS % 2.4 % (0.0-7.0); HEMATOCRIT 27.7 % (42.0-52.0); HEMOGLOBIN 8.4 g/dl (14.0-18.0); LYMPHOCYTES # 0.7 10^3/ul (0.8-2.9); LYMPHOCYTES % 7.3 % (15.0-51.0); MEAN CORPUSCULAR HEMOGLOBIN 28.2 pg (29.0-33.0); MEAN CORPUSCULAR HGB CONC 30.3 g/dl (32.0-37.0); MEAN PLATELET VOLUME 9.9 fl (7.4-10.4); MONOCYTE # 0.7 10^3/ul (0.3-0.9); MONOCYTES % 7.8 % (0.0-11.0); NEUTROPHIL # 7.6 10^3/ul (1.6-7.5); NEUTROPHILS % 81.7 % (39.0-77.0); PLATELET COUNT 231 10^3/UL (140-415); RED BLOOD COUNT 2.98 10^6/ul (4.70-6.10); RED CELL DISTRIBUTION WIDTH 15.3 % (11.5-14.5)
[2018-08-24 07:04] LABS: WHITE BLOOD COUNT 9.2 10^3/ul (4.8-10.8)
[2018-08-24 07:25] LABS: ANION GAP 9 (5-13); BLOOD UREA NITROGEN 37 mg/dl (7-20); CALCIUM 8.9 mg/dl (8.4-10.2); CARBON DIOXIDE 22 mmol/L (21-31); CHLORIDE 111 mmol/L (97-110); CREATININE 0.94 mg/dl (0.61-1.24); GLUCOSE 138 mg/dl (70-220); SODIUM 142 mmol/L (135-144)
[2018-08-24 08:10] LABS: TROPONIN-I 0.292 ng/ml (0.000-0.120)
[2018-08-24] MEDS: LACTOBACILLUS RHAMNOSUS CAP PO ×2 (10:10→21:58)
[2018-08-24] MEDS: POLYETHYLENE GLYCOL 17 GM PACKET NGT (10:10)
[2018-08-24] MEDS: CEFEPIME 2GM/50 ML (PMX) 50 ML IVPB ×2 (10:11→21:58)
[2018-08-24] MEDS: PHENAZOPYRIDINE 200 MG TAB PO ×3 (10:12→21:58)
[2018-08-24] MEDS: BUPROPION (XL) 150 MG TAB PO (10:13)
[2018-08-24] MEDS: MYCOPHENOLATE 250 MG CAP PO ×2 (10:13→21:59)
[2018-08-24] MEDS: oxyCODONE (CR) 15 MG TAB [oxyCONTIN] PO (10:13)
[2018-08-24] MEDS: CHOLECALCIFEROL 1,000 UNIT TAB PO (10:14)
[2018-08-24] MEDS: LORATADINE 10 MG TAB PO (10:15)
[2018-08-24] MEDS: CITALOPRAM 20 MG TAB PO (10:15)
[2018-08-24] MEDS: AMIODARONE 200 MG TAB PO (10:16)
[2018-08-24] MEDS ORDERED: HYDROmorphONE 1 MG/ML SYG IV (13:00)
[2018-08-24 13:52] LABS: CREATINE KINASE 131 IU/L (23-200)
[2018-08-24 14:01] LABS: CK INDEX 2.4; CK-MB 3.19 ng/ml (0.0-2.4)
[2018-08-24 14:06] LABS: TROPONIN-I 0.286 ng/ml (0.000-0.120)
[2018-08-24] MEDS: VANCOMYCIN 750 MG in SOD CHLORIDE 0.9% 150 ML IVPB (14:48)
[2018-08-24 17:29] LABS: CREATINE KINASE 110 IU/L (23-200)
[2018-08-24 17:41] LABS: CK INDEX 2.7; CK-MB 2.93 ng/ml (0.0-2.4)
[2018-08-24] MEDS: ASPIRIN 325 MG TAB PO (21:58)
[2018-08-24] MEDS: MELATONIN 5 MG TABLET PO (21:59)
[2018-08-24] MEDS: ATORVASTATIN 40 MG TAB PO (21:59)
[2018-08-25] MEDS: VANCOMYCIN 750 MG in SOD CHLORIDE 0.9% 150 ML IVPB ×3 (00:50→23:20)
[2018-08-25] MEDS: SOD CHLORIDE 0.9% 1,000 ML IV ×3 (03:57→23:20)
[2018-08-25 06:41] LABS: ADD MAN DIFF? NO
[2018-08-25] MEDS: PANTOPRAZOLE (EC) 40 MG TAB PO (06:41)
[2018-08-25 06:48] LABS: BASOPHILS % 0.3 % (0.0-2.0); EOSINOPHILS # 0.3 10^3/ul (0.0-0.5); EOSINOPHILS % 3.9 % (0.0-7.0); HEMATOCRIT 25.4 % (42.0-52.0); HEMOGLOBIN 7.8 g/dl (14.0-18.0); LYMPHOCYTES # 0.7 10^3/ul (0.8-2.9); LYMPHOCYTES % 9.5 % (15.0-51.0); MEAN CORPUSCULAR HEMOGLOBIN 28.7 pg (29.0-33.0); MEAN CORPUSCULAR HGB CONC 30.7 g/dl (32.0-37.0); MEAN CORPUSCULAR VOLUME 93.4 fl (82.0-101.0); MEAN PLATELET VOLUME 10.1 fl (7.4-10.4); MONOCYTE # 0.9 10^3/ul (0.3-0.9); MONOCYTES % 12.2 % (0.0-11.0); NEUTROPHIL # 5.2 10^3/ul (1.6-7.5); NEUTROPHILS % 73.1 % (39.0-77.0); PLATELET COUNT 174 10^3/UL (140-415); RED BLOOD COUNT 2.72 10^6/ul (4.70-6.10); RED CELL DISTRIBUTION WIDTH 15.6 % (11.5-14.5)
[2018-08-25 06:48] LABS: WHITE BLOOD COUNT 7.1 10^3/ul (4.8-10.8)
[2018-08-25 07:14] LABS: MAGNESIUM 1.9 mg/dl (1.7-2.5)
[2018-08-25 07:14] LABS: PHOSPHORUS 2.4 mg/dl (2.5-4.9)
[2018-08-25 07:22] LABS: ANION GAP 7 (5-13); BLOOD UREA NITROGEN 34 mg/dl (7-20); CALCIUM 8.7 mg/dl (8.4-10.2); CARBON DIOXIDE 22 mmol/L (21-31); CHLORIDE 112 mmol/L (97-110); CREATININE 0.82 mg/dl (0.61-1.24); GLUCOSE 106 mg/dl (70-220); SODIUM 141 mmol/L (135-144)
[2018-08-25] MEDS: CITALOPRAM 20 MG TAB PO (09:38)
[2018-08-25] MEDS: MYCOPHENOLATE 250 MG CAP PO ×2 (09:39→20:55)
[2018-08-25] MEDS: LACTOBACILLUS RHAMNOSUS CAP PO ×2 (09:39→20:56)
[2018-08-25] MEDS: LORATADINE 10 MG TAB PO (09:39)
[2018-08-25] MEDS: BUPROPION (XL) 150 MG TAB PO (09:39)
[2018-08-25] MEDS: POLYETHYLENE GLYCOL 17 GM PACKET NGT (09:41)
[2018-08-25] MEDS: PHENAZOPYRIDINE 200 MG TAB PO ×2 (09:41→14:24)
[2018-08-25] MEDS: AMIODARONE 200 MG TAB PO (09:41)
[2018-08-25] MEDS: CHOLECALCIFEROL 1,000 UNIT TAB PO (09:41)
[2018-08-25] MEDS: CEFEPIME 2GM/50 ML (PMX) 50 ML IVPB ×2 (11:06→20:55)
[2018-08-25 12:08] LABS: VANCOMYCIN,TROUGH 11.8 ug/ml (10.0-20.0)
[2018-08-25] MEDS: ATORVASTATIN 40 MG TAB PO (20:56)
[2018-08-25] MEDS: MELATONIN 5 MG TABLET PO (20:57)
[2018-08-26] MEDS: PANTOPRAZOLE (EC) 40 MG TAB PO (06:17)
[2018-08-26] MEDS: SOD CHLORIDE 0.9% 1,000 ML IV ×2 (06:48→09:59)
[2018-08-26 08:48] LABS: ADD MAN DIFF? NO
[2018-08-26 08:56] LABS: BASOPHILS % 0.4 % (0.0-2.0); EOSINOPHILS # 0.2 10^3/ul (0.0-0.5); EOSINOPHILS % 2.4 % (0.0-7.0); HEMATOCRIT 27.7 % (42.0-52.0); HEMOGLOBIN 8.5 g/dl (14.0-18.0); LYMPHOCYTES # 0.9 10^3/ul (0.8-2.9); LYMPHOCYTES % 10.5 % (15.0-51.0); MEAN CORPUSCULAR HEMOGLOBIN 28.7 pg (29.0-33.0); MEAN CORPUSCULAR HGB CONC 30.7 g/dl (32.0-37.0); MEAN CORPUSCULAR VOLUME 93.6 fl (82.0-101.0); MEAN PLATELET VOLUME 10.1 fl (7.4-10.4); MONOCYTE # 0.8 10^3/ul (0.3-0.9); MONOCYTES % 8.8 % (0.0-11.0); NEUTROPHIL # 6.6 10^3/ul (1.6-7.5); NEUTROPHILS % 77.1 % (39.0-77.0); PLATELET COUNT 207 10^3/UL (140-415); RED BLOOD COUNT 2.96 10^6/ul (4.70-6.10); RED CELL DISTRIBUTION WIDTH 15.4 % (11.5-14.5)
[2018-08-26 08:56] LABS: WHITE BLOOD COUNT 8.5 10^3/ul (4.8-10.8)
[2018-08-26] MEDS: LACTOBACILLUS RHAMNOSUS CAP PO ×2 (08:56→21:02)
[2018-08-26] MEDS: POLYETHYLENE GLYCOL 17 GM PACKET NGT (08:56)
[2018-08-26] MEDS: CITALOPRAM 20 MG TAB PO (08:57)
[2018-08-26] MEDS: ASPIRIN 81 MG TAB PO (08:57)
[2018-08-26] MEDS: LORATADINE 10 MG TAB PO (08:57)
[2018-08-26] MEDS: MYCOPHENOLATE 250 MG CAP PO ×2 (08:58→21:02)
[2018-08-26] MEDS: BUPROPION (XL) 150 MG TAB PO (08:58)
[2018-08-26] MEDS: CHOLECALCIFEROL 1,000 UNIT TAB PO (08:58)
[2018-08-26] MEDS: AMIODARONE 200 MG TAB PO (08:58)
[2018-08-26 09:16] LABS: ANION GAP 7 (5-13); BLOOD UREA NITROGEN 27 mg/dl (7-20); CALCIUM 8.4 mg/dl (8.4-10.2); CARBON DIOXIDE 22 mmol/L (21-31); CHLORIDE 111 mmol/L (97-110); GLUCOSE 123 mg/dl (70-220); MAGNESIUM 1.9 mg/dl (1.7-2.5); POTASSIUM 4.2 mmol/L (3.5-5.1); PROTIME 14.4 Sec (11.9-14.9); PT RATIO 1.1; SODIUM 140 mmol/L (135-144)
[2018-08-26 09:17] LABS: PARTIAL THROMBOPLASTIN TIME 33.6 Sec (23.0-35.0)
[2018-08-26] MEDS: CEFEPIME 2GM/50 ML (PMX) 50 ML IVPB (10:11)
[2018-08-26] MEDS: APIXABAN 5 MG TABLET PO ×2 (10:14→21:03)
[2018-08-26] MEDS: VANCOMYCIN 750 MG in SOD CHLORIDE 0.9% 150 ML IVPB ×2 (12:47→23:20)
[2018-08-26] MEDS: LIDOCAINE 1% (MPF) 5 ML VIAL SC (14:10)
[2018-08-26] MEDS: ATORVASTATIN 40 MG TAB PO (21:02)
[2018-08-26] MEDS: MELATONIN 5 MG TABLET PO (21:02)
[2018-08-26] MEDS: CIPROFLOXACIN 400MG/D5W 200 ML IVPB (21:10)
[2018-08-27] MEDS: PANTOPRAZOLE (EC) 40 MG TAB PO (05:04)
[2018-08-27 06:17] LABS: ADD MAN DIFF? NO
[2018-08-27 06:26] LABS: BASOPHILS % 0.2 % (0.0-2.0); EOSINOPHILS # 0.1 10^3/ul (0.0-0.5); EOSINOPHILS % 0.8 % (0.0-7.0); HEMATOCRIT 27.4 % (42.0-52.0); HEMOGLOBIN 8.6 g/dl (14.0-18.0); LYMPHOCYTES # 0.8 10^3/ul (0.8-2.9); LYMPHOCYTES % 8.3 % (15.0-51.0); MEAN CORPUSCULAR HEMOGLOBIN 28.6 pg (29.0-33.0); MEAN CORPUSCULAR HGB CONC 31.4 g/dl (32.0-37.0); MEAN PLATELET VOLUME 9.8 fl (7.4-10.4); MONOCYTE # 0.7 10^3/ul (0.3-0.9); NEUTROPHIL # 7.5 10^3/ul (1.6-7.5); PLATELET COUNT 229 10^3/UL (140-415); RED BLOOD COUNT 3.01 10^6/ul (4.70-6.10); RED CELL DISTRIBUTION WIDTH 15.3 % (11.5-14.5)
[2018-08-27 06:26] LABS: WHITE BLOOD COUNT 9.2 10^3/ul (4.8-10.8)
[2018-08-27 06:40] LABS: MAGNESIUM 1.7 mg/dl (1.7-2.5)
[2018-08-27 06:40] LABS: PHOSPHORUS 2.4 mg/dl (2.5-4.9)
[2018-08-27 06:49] LABS: ANION GAP 10 (5-13); BLOOD UREA NITROGEN 23 mg/dl (7-20); CALCIUM 8.8 mg/dl (8.4-10.2); CARBON DIOXIDE 24 mmol/L (21-31); CHLORIDE 107 mmol/L (97-110); CREATININE 0.73 mg/dl (0.61-1.24); GLUCOSE 118 mg/dl (70-220); POTASSIUM 3.8 mmol/L (3.5-5.1); SODIUM 141 mmol/L (135-144)
[2018-08-27] MEDS: CIPROFLOXACIN 400MG/D5W 200 ML IVPB ×2 (08:57→21:40)
[2018-08-27] MEDS: LACTOBACILLUS RHAMNOSUS CAP PO ×2 (08:58→21:39)
[2018-08-27] MEDS: BUPROPION (XL) 150 MG TAB PO (08:58)
[2018-08-27] MEDS: POLYETHYLENE GLYCOL 17 GM PACKET NGT (08:58)
[2018-08-27] MEDS: CITALOPRAM 20 MG TAB PO (08:59)
[2018-08-27] MEDS: AMIODARONE 200 MG TAB PO (08:59)
[2018-08-27] MEDS: LORATADINE 10 MG TAB PO (08:59)
[2018-08-27] MEDS: MYCOPHENOLATE 250 MG CAP PO ×2 (08:59→21:39)
[2018-08-27] MEDS: CHOLECALCIFEROL 1,000 UNIT TAB PO (09:00)
[2018-08-27] MEDS: APIXABAN 5 MG TABLET PO ×2 (09:00→21:39)
[2018-08-27] MEDS: VANCOMYCIN 750 MG in SOD CHLORIDE 0.9% 150 ML IVPB ×2 (11:28→23:06)
[2018-08-27] MEDS: ATORVASTATIN 40 MG TAB PO (21:39)
[2018-08-27] MEDS: MELATONIN 5 MG TABLET PO (21:39)
[2018-08-28] MEDS: PANTOPRAZOLE (EC) 40 MG TAB PO (05:37)
[2018-08-28 06:08] LABS: ADD MAN DIFF? NO
[2018-08-28 06:19] LABS: WHITE BLOOD COUNT 8.6 10^3/ul (4.8-10.8)
[2018-08-28 06:19] LABS: BASOPHILS % 0.2 % (0.0-2.0); EOSINOPHILS # 0.1 10^3/ul (0.0-0.5); EOSINOPHILS % 0.9 % (0.0-7.0); HEMATOCRIT 26.3 % (42.0-52.0); HEMOGLOBIN 8.3 g/dl (14.0-18.0); LYMPHOCYTES # 0.9 10^3/ul (0.8-2.9); LYMPHOCYTES % 9.9 % (15.0-51.0); MEAN CORPUSCULAR HEMOGLOBIN 28.6 pg (29.0-33.0); MEAN CORPUSCULAR HGB CONC 31.6 g/dl (32.0-37.0); MEAN CORPUSCULAR VOLUME 90.7 fl (82.0-101.0); MEAN PLATELET VOLUME 9.7 fl (7.4-10.4); MONOCYTE # 0.8 10^3/ul (0.3-0.9); MONOCYTES % 8.7 % (0.0-11.0); NEUTROPHIL # 6.8 10^3/ul (1.6-7.5); NEUTROPHILS % 79.4 % (39.0-77.0); PLATELET COUNT 230 10^3/UL (140-415); RED CELL DISTRIBUTION WIDTH 15.3 % (11.5-14.5)
[2018-08-28 06:36] LABS: MAGNESIUM 1.7 mg/dl (1.7-2.5)
[2018-08-28 06:43] LABS: ANION GAP 5 (5-13); BLOOD UREA NITROGEN 20 mg/dl (7-20); CALCIUM 8.4 mg/dl (8.4-10.2); CARBON DIOXIDE 27 mmol/L (21-31); CHLORIDE 106 mmol/L (97-110); CREATININE 0.69 mg/dl (0.61-1.24); GLUCOSE 116 mg/dl (70-220); SODIUM 138 mmol/L (135-144)
[2018-08-28 06:50] LABS: POTASSIUM 3.7 mmol/L (3.5-5.1)
[2018-08-28] MEDS: LORATADINE 10 MG TAB PO (08:36)
[2018-08-28] MEDS: POLYETHYLENE GLYCOL 17 GM PACKET NGT (08:36)
[2018-08-28] MEDS: BUPROPION (XL) 150 MG TAB PO (08:36)
[2018-08-28] MEDS: APIXABAN 5 MG TABLET PO ×2 (08:36→20:58)
[2018-08-28] MEDS: CHOLECALCIFEROL 1,000 UNIT TAB PO (08:36)
[2018-08-28] MEDS: CITALOPRAM 20 MG TAB PO (08:36)
[2018-08-28] MEDS: MYCOPHENOLATE 250 MG CAP PO ×2 (08:36→21:02)
[2018-08-28] MEDS: LACTOBACILLUS RHAMNOSUS CAP PO ×2 (08:36→21:01)
[2018-08-28] MEDS: AMIODARONE 200 MG TAB PO (08:37)
[2018-08-28] MEDS: CIPROFLOXACIN 400MG/D5W 200 ML IVPB ×2 (09:12→21:14)
[2018-08-28] MEDS: VANCOMYCIN 750 MG in SOD CHLORIDE 0.9% 150 ML IVPB (13:09)
[2018-08-28] MEDS: ATORVASTATIN 40 MG TAB PO (21:00)
[2018-08-28] MEDS: MELATONIN 5 MG TABLET PO (21:01)
[2018-08-28] MEDS: ALBUTEROL 0.083% (NEB) 2.5 MG/3 ML AMP NEB (22:46)
[2018-08-29] MEDS: VANCOMYCIN 750 MG in SOD CHLORIDE 0.9% 150 ML IVPB ×2 (00:39→12:57)
[2018-08-29] MEDS: PANTOPRAZOLE (EC) 40 MG TAB PO ×2 (07:37→17:25)
[2018-08-29 07:54] LABS: ANION GAP 5 (5-13); BLOOD UREA NITROGEN 17 mg/dl (7-20); CALCIUM 8.5 mg/dl (8.4-10.2); CARBON DIOXIDE 28 mmol/L (21-31); CHLORIDE 104 mmol/L (97-110); CREATININE 0.73 mg/dl (0.61-1.24); GLUCOSE 114 mg/dl (70-220); POTASSIUM 3.6 mmol/L (3.5-5.1); SODIUM 137 mmol/L (135-144)
[2018-08-29 07:55] LABS: MAGNESIUM 1.6 mg/dl (1.7-2.5)
[2018-08-29] MEDS: CIPROFLOXACIN 400MG/D5W 200 ML IVPB ×2 (08:41→21:09)
[2018-08-29] MEDS: POLYETHYLENE GLYCOL 17 GM PACKET NGT (09:36)
[2018-08-29] MEDS: LORATADINE 10 MG TAB PO (09:36)
[2018-08-29] MEDS: MYCOPHENOLATE 250 MG CAP PO ×2 (09:37→20:55)
[2018-08-29] MEDS: CHOLECALCIFEROL 1,000 UNIT TAB PO (09:37)
[2018-08-29] MEDS: APIXABAN 5 MG TABLET PO ×2 (09:37→20:57)
[2018-08-29] MEDS: BUPROPION (XL) 150 MG TAB PO (09:37)
[2018-08-29] MEDS: LACTOBACILLUS RHAMNOSUS CAP PO ×2 (09:37→20:56)
[2018-08-29] MEDS: CITALOPRAM 20 MG TAB PO (09:38)
[2018-08-29] MEDS: AMIODARONE 200 MG TAB PO (09:38)
[2018-08-29] MEDS: MAGNESIUM SULFATE 2 GM/50 ML 50 ML IVPB (10:56)
[2018-08-29] MEDS: hydrALAzine 20 MG INJ IV (15:29)
[2018-08-29] MEDS: ALBUTEROL 0.083% (NEB) 2.5 MG/3 ML AMP NEB ×2 (16:18→16:33)
[2018-08-29 17:40] LABS: CREATINE KINASE 57 IU/L (23-200)
[2018-08-29 17:53] LABS: CK INDEX 3.7; CK-MB 2.09 ng/ml (0.0-2.4); TROPONIN-I 0.019 ng/ml (0.000-0.120)
[2018-08-29] MEDS: FUROSEMIDE 40 MG INJ IV (20:55)
[2018-08-29] MEDS: MELATONIN 5 MG TABLET PO (20:57)
[2018-08-29] MEDS: ATORVASTATIN 40 MG TAB PO (20:57)
[2018-08-30] MEDS: VANCOMYCIN 750 MG in SOD CHLORIDE 0.9% 150 ML IVPB ×2 (00:18→12:37)
[2018-08-30] MEDS: BARIUM SULFATE 135 ML (E-Z HD) PO ×2 (00:21→00:22)
[2018-08-30] MEDS: SIMETH/SOD BICARB/CIT AC PKT (E-Z- GAS II) PO (00:22)
[2018-08-30] MEDS: FUROSEMIDE 40 MG INJ IV ×2 (06:15→16:08)
[2018-08-30] MEDS: CIPROFLOXACIN 500 MG TAB PO (06:16)
[2018-08-30] MEDS: PANTOPRAZOLE (EC) 40 MG TAB PO (06:16)
[2018-08-30 07:01] LABS: ADD MAN DIFF? NO
[2018-08-30 07:09] LABS: BASOPHILS % 0.2 % (0.0-2.0); EOSINOPHILS # 0.1 10^3/ul (0.0-0.5); EOSINOPHILS % 1.4 % (0.0-7.0); HEMATOCRIT 26.4 % (42.0-52.0); HEMOGLOBIN 8.3 g/dl (14.0-18.0); LYMPHOCYTES # 0.8 10^3/ul (0.8-2.9); LYMPHOCYTES % 8.7 % (15.0-51.0); MEAN CORPUSCULAR HEMOGLOBIN 28.3 pg (29.0-33.0); MEAN CORPUSCULAR HGB CONC 31.4 g/dl (32.0-37.0); MEAN CORPUSCULAR VOLUME 90.1 fl (82.0-101.0); MEAN PLATELET VOLUME 9.6 fl (7.4-10.4); MONOCYTE # 0.7 10^3/ul (0.3-0.9); NEUTROPHIL # 7.9 10^3/ul (1.6-7.5); NEUTROPHILS % 81.8 % (39.0-77.0); PLATELET COUNT 240 10^3/UL (140-415); RED BLOOD COUNT 2.93 10^6/ul (4.70-6.10); RED CELL DISTRIBUTION WIDTH 15.2 % (11.5-14.5)
[2018-08-30 07:09] LABS: WHITE BLOOD COUNT 9.6 10^3/ul (4.8-10.8)
[2018-08-30 07:43] LABS: MAGNESIUM 1.8 mg/dl (1.7-2.5)
[2018-08-30 07:47] LABS: ANION GAP 6 (5-13); BLOOD UREA NITROGEN 17 mg/dl (7-20); CALCIUM 8.3 mg/dl (8.4-10.2); CARBON DIOXIDE 31 mmol/L (21-31); CHLORIDE 100 mmol/L (97-110); CREATININE 0.78 mg/dl (0.61-1.24); GLUCOSE 104 mg/dl (70-220); POTASSIUM 3.4 mmol/L (3.5-5.1); SODIUM 137 mmol/L (135-144)
[2018-08-30] MEDS: APIXABAN 5 MG TABLET PO (09:55)
[2018-08-30] MEDS: LACTOBACILLUS RHAMNOSUS CAP PO (09:55)
[2018-08-30] MEDS: POTASSIUM CHLORIDE 20 MEQ POWDER FOR ORAL SOLN PO ×2 (09:55→12:40)
[2018-08-30] MEDS: POLYETHYLENE GLYCOL 17 GM PACKET NGT (09:55)
[2018-08-30] MEDS: CITALOPRAM 20 MG TAB PO (09:55)
[2018-08-30] MEDS: BUPROPION (XL) 150 MG TAB PO (09:55)
[2018-08-30] MEDS: MYCOPHENOLATE 250 MG CAP PO (09:55)
[2018-08-30] MEDS: MAGNESIUM SULFATE 2 GM/50 ML 50 ML IVPB (09:55)
[2018-08-30] MEDS: FUROSEMIDE 40 MG TAB PO (09:55)
[2018-08-30] MEDS: LORATADINE 10 MG TAB PO (09:55)
[2018-08-30] MEDS: CHOLECALCIFEROL 1,000 UNIT TAB PO (09:55)
[2018-08-30] MEDS: AMIODARONE 200 MG TAB PO (09:56)
[2018-08-30] MEDS: HYDROmorphONE 4 MG TAB PO (14:40)
== END 2018-08-30 18:45 | DRG 698 ==
LOC: PP2 08-19 04:45 → TEL 08-24 08:12 → E/R 10:24 → PP2 13:16
PROC: 0T9B30Z Drainage of Bladder with Drainage Device, Percutaneous Approach (ICD-10-PCS; principal; 2018-08-21 17:30)
PROC: 3C1ZX8Z Irrigation of Indwelling Device using Irrigating Substance, External Approach (ICD-10-PCS; 2018-08-21 18:07)
PROC: 02HV33Z Insertion of Infusion Device into Superior Vena Cava, Percutaneous Approach (ICD-10-PCS; 2018-08-21 18:07)
PROC: B548ZZA Ultrasonography of Superior Vena Cava, Guidance (ICD-10-PCS; 2018-08-21 18:07)
DX: T83.511A Infection and inflammatory reaction due to indwelling urethral catheter, initial encounter (principal); G92 Toxic encephalopathy; I21.A1 Myocardial infarction type 2; I50.33 Acute on chronic diastolic (congestive) heart failure; I69.951 Hemiplegia and hemiparesis following unspecified cerebrovascular disease affecting right dominant side; N17.9 Acute kidney failure, unspecified; N30.01 Acute cystitis with hematuria; I48.0 Paroxysmal atrial fibrillation; I95.9 Hypotension, unspecified; I11.0 Hypertensive heart disease with heart failure; R06.03 Acute respiratory distress; I73.9 Peripheral vascular disease, unspecified; Z95.1 Presence of aortocoronary bypass graft; I69.921 Dysphasia following unspecified cerebrovascular disease; I69.922 Dysarthria following unspecified cerebrovascular disease; B96.5 Pseudomonas (aeruginosa) (mallei) (pseudomallei) as the cause of diseases classified elsewhere; B95.62 Methicillin resistant Staphylococcus aureus infection as the cause of diseases classified elsewhere; L40.9 Psoriasis, unspecified; I25.10 Atherosclerotic heart disease of native coronary artery without angina pectoris; K21.9 Gastro-esophageal reflux disease without esophagitis; N40.1 Benign prostatic hyperplasia with lower urinary tract symptoms; R33.8 Other retention of urine; E78.5 Hyperlipidemia, unspecified; N45.3 Epididymo-orchitis; K57.30 Diverticulosis of large intestine without perforation or abscess without bleeding; K43.9 Ventral hernia without obstruction or gangrene; T40.605A Adverse effect of unspecified narcotics, initial encounter; R09.02 Hypoxemia; B95.2 Enterococcus as the cause of diseases classified elsewhere; Z79.82 Long term (current) use of aspirin; Z79.02 Long term (current) use of antithrombotics/antiplatelets; Z98.62 Peripheral vascular angioplasty status; Z87.891 Personal history of nicotine dependence; Z86.718 Personal history of other venous thrombosis and embolism
CPT/HCPCS: 36415; 36569; 71045; 74176; 74230; 76856; 76937; 80048; 80053; 80202; 81001; 82550; 82553; 82962; 83605; 83735; 84100; 84484; 85025; 85610; 85730; 87040; 87086; 92526; 92610; 92611; 93005; 93306; 94640; 96374; 96375; 97110; 97163; 97530; 99285-25

== ENCOUNTER → 2018-09-10 | Emergency (ER) | payer OTHER ==
[2018-09-10] MEDS: ONDANSETRON 4 MG INJ IV (22:34)
[2018-09-10] MEDS: HYDROmorphONE 2 MG/ML SYG IV (22:34)
[2018-09-10 22:35] LABS: ADD MAN DIFF? NO
[2018-09-10 22:39] LABS: WHITE BLOOD COUNT 8.6 10^3/ul (4.8-10.8)
[2018-09-10 22:39] LABS: BASOPHIL # 0.1 10^3/ul (0.0-0.1); BASOPHILS % 0.6 % (0.0-2.0); EOSINOPHILS # 0.3 10^3/ul (0.0-0.5); EOSINOPHILS % 3.3 % (0.0-7.0); HEMATOCRIT 33.1 % (42.0-52.0); HEMOGLOBIN 10.7 g/dl (14.0-18.0); LYMPHOCYTES # 1.2 10^3/ul (0.8-2.9); LYMPHOCYTES % 14.1 % (15.0-51.0); MEAN CORPUSCULAR HGB CONC 32.3 g/dl (32.0-37.0); MEAN CORPUSCULAR VOLUME 86.6 fl (82.0-101.0); MEAN PLATELET VOLUME 9.5 fl (7.4-10.4); MONOCYTE # 0.7 10^3/ul (0.3-0.9); MONOCYTES % 8.1 % (0.0-11.0); NEUTROPHIL # 6.3 10^3/ul (1.6-7.5); NEUTROPHILS % 73.3 % (39.0-77.0); PLATELET COUNT 282 10^3/UL (140-415); RED BLOOD COUNT 3.82 10^6/ul (4.70-6.10); RED CELL DISTRIBUTION WIDTH 14.7 % (11.5-14.5)
[2018-09-10 22:59] LABS: ALANINE AMINOTRANSFERASE 53 IU/L (13-69); ALBUMIN/GLOBULIN RATIO 0.95; ALKALINE PHOSPHATASE 130 IU/L (42-121); ANION GAP 11 (5-13); ASPARTATE AMINO TRANSFERASE 31 IU/L (15-46); BILIRUBIN,INDIRECT 0.3 mg/dl (0-1.1); BILIRUBIN,TOTAL 0.3 mg/dl (0.2-1.3); BLOOD UREA NITROGEN 37 mg/dl (7-20); CALCIUM 9.3 mg/dl (8.4-10.2); CARBON DIOXIDE 29 mmol/L (21-31); CHLORIDE 94 mmol/L (97-110); CREATININE 2.14 mg/dl (0.61-1.24); GLUCOSE 117 mg/dl (70-220); INR 1.21; POTASSIUM 5.3 mmol/L (3.5-5.1); PROTIME 15.5 Sec (11.9-14.9); PT RATIO 1.2; SODIUM 134 mmol/L (135-144); TOTAL PROTEIN 8.2 g/dl (6.1-8.1)
[2018-09-10 23:01] LABS: PARTIAL THROMBOPLASTIN TIME 33.2 Sec (23.0-35.0)
== END | disposition home or self-care (01) ==
LOC: E/R 21:57
DX: R33.9 Retention of urine, unspecified (principal); R31.9 Hematuria, unspecified; Z95.1 Presence of aortocoronary bypass graft; Z86.73 Personal history of transient ischemic attack (TIA), and cerebral infarction without residual deficits
CPT/HCPCS: 80053; 85025; 85610; 85730; 96374; 96375; 99284-25

== ENCOUNTER 2018-09-16 08:39 | Observation (INO) | payer OTHER ==
[2018-09-16 09:23] LABS: ADD MAN DIFF? NO
[2018-09-16 09:29] LABS: BASOPHILS % 0.4 % (0.0-2.0); EOSINOPHILS # 0.1 10^3/ul (0.0-0.5); EOSINOPHILS % 1.6 % (0.0-7.0); HEMATOCRIT 30.4 % (42.0-52.0); HEMOGLOBIN 9.5 g/dl (14.0-18.0); LYMPHOCYTES # 0.7 10^3/ul (0.8-2.9); LYMPHOCYTES % 13.9 % (15.0-51.0); MEAN CORPUSCULAR HEMOGLOBIN 27.2 pg (29.0-33.0); MEAN CORPUSCULAR HGB CONC 31.3 g/dl (32.0-37.0); MEAN CORPUSCULAR VOLUME 87.1 fl (82.0-101.0); MEAN PLATELET VOLUME 9.2 fl (7.4-10.4); MONOCYTE # 0.5 10^3/ul (0.3-0.9); MONOCYTES % 9.5 % (0.0-11.0); NEUTROPHIL # 3.7 10^3/ul (1.6-7.5); PLATELET COUNT 214 10^3/UL (140-415); RED BLOOD COUNT 3.49 10^6/ul (4.70-6.10); RED CELL DISTRIBUTION WIDTH 14.6 % (11.5-14.5)
[2018-09-16] MEDS: ONDANSETRON 4 MG INJ IV (09:39)
[2018-09-16] MEDS: HYDROmorphONE 1 MG/ML SYG IV (09:40)
[2018-09-16] MEDS: CEFTRIAXONE 1 GM/50 ML (PMX) 50 ML IVPB (09:40)
[2018-09-16] MEDS: SODIUM CHLORIDE 0.9% 1L BAG IV* (09:41)
[2018-09-16 09:49] LABS: ALANINE AMINOTRANSFERASE 43 IU/L (13-69); ALBUMIN 3.9 g/dl (3.3-4.9); ALKALINE PHOSPHATASE 116 IU/L (42-121); ANION GAP 8 (5-13); ASPARTATE AMINO TRANSFERASE 32 IU/L (15-46); BILIRUBIN,INDIRECT 0.4 mg/dl (0-1.1); BILIRUBIN,TOTAL 0.4 mg/dl (0.2-1.3); BLOOD UREA NITROGEN 26 mg/dl (7-20); CALCIUM 9.5 mg/dl (8.4-10.2); CARBON DIOXIDE 32 mmol/L (21-31); CHLORIDE 95 mmol/L (97-110); CREATININE 1.61 mg/dl (0.61-1.24); GLUCOSE 92 mg/dl (70-220); INR 1.15; LIPASE 92 U/L (23-300); POTASSIUM 4.8 mmol/L (3.5-5.1); PROTIME 14.9 Sec (11.9-14.9); PT RATIO 1.2; SODIUM 135 mmol/L (135-144); TOTAL PROTEIN 7.3 g/dl (6.1-8.1)
[2018-09-16 09:50] LABS: PARTIAL THROMBOPLASTIN TIME 33.2 Sec (23.0-35.0)
[2018-09-16 10:00] LABS: TROPONIN-I < 0.012 ng/ml (0.000-0.120)
[2018-09-16 10:26] LABS: ADD UMIC YES; UR AMORPHOUS CRYSTAL FEW /HPF (NONE SEEN); UR ASCORBIC ACID NEGATIVE (NEGATIVE); UR BACTERIA MANY /HPF (NONE SEEN); UR BILIRUBIN (Dip) NEGATIVE (NEGATIVE); UR BLOOD (Dip) 2+ mg/dL (NEGATIVE); UR CLARITY SLIGHTLY CLOUDY (CLEAR); UR COLOR YELLOW (YELLOW); UR GLUCOSE (Dip) NEGATIVE (NEGATIVE); UR KETONES (Dip) NEGATIVE (NEGATIVE); UR LEUKOCYTE ESTERASE (Dip) 3+ Leu/ul (NEGATIVE); UR MUCUS FEW /HPF (NONE SEEN); UR NITRITE (Dip) NEGATIVE (NEGATIVE); UR RBC 14 /HPF (0-5); UR SPECIFIC GRAVITY (Dip) 1.014 (1.003-1.030); UR TOTAL PROTEIN (Dip) 1+ mg/dl (NEGATIVE); UR UROBILINOGEN (Dip) NEGATIVE (NEGATIVE); UR WBC 43 /HPF (0-5)
[2018-09-16] MEDS ORDERED: ACETAMINOPHEN 325 MG TAB PO ×2 (12:30→13:00)
[2018-09-16] MEDS ORDERED: ONDANSETRON 4 MG INJ IV ×2 (12:30→13:00)
[2018-09-16] MEDS: AMPICILLIN/SULB 3 GM/NS (PMX) 100 ML IVPB (12:48)
[2018-09-16] MEDS ORDERED: hydrALAzine 20 MG INJ IV (13:00)
[2018-09-16] MEDS ORDERED: ALBUTEROL 0.083% (NEB) 2.5 MG/3 ML AMP NEB (13:00)
[2018-09-16] MEDS ORDERED: NACL 0.9% 3 ML SYG IV (13:00)
[2018-09-16] MEDS: metroNIDAZOLE 500 MG/NS (PMX) 100 ML IVPB ×2 (14:11→20:25)
[2018-09-16] MEDS: SOD CHLORIDE 0.9% 1,000 ML IV (14:11)
[2018-09-16] MEDS: PANTOPRAZOLE 40 MG INJ IV (14:11)
[2018-09-16 14:47] LABS: LACTIC ACID 0.8 mmol/L (0.5-2.0)
[2018-09-16] MEDS: ENOXAPARIN 80 MG/0.8 ML SYG SC (15:47)
[2018-09-16] MEDS: CIPROFLOXACIN 400MG/D5W 200 ML IVPB (21:30)
[2018-09-17] MEDS: metroNIDAZOLE 500 MG/NS (PMX) 100 ML IVPB (05:21)
[2018-09-17] MEDS: PANTOPRAZOLE 40 MG INJ IV (05:21)
[2018-09-17] MEDS: AMOXICILLIN/CLAV 875 MG TAB PO (09:24)
[2018-09-17] MEDS: APIXABAN 5 MG TABLET PO (09:24)
[2018-09-17] MEDS: AMIODARONE 200 MG TAB PO (09:25)
[2018-09-17] MEDS: MYCOPHENOLATE 250 MG CAP PO (09:25)
[2018-09-17 10:47] LABS: ADD MAN DIFF? NO
[2018-09-17 10:52] LABS: ABNORMAL IP MESSAGE 1; BASOPHILS % 0.7 % (0.0-2.0); EOSINOPHILS # 0.1 10^3/ul (0.0-0.5); EOSINOPHILS % 3.3 % (0.0-7.0); HEMATOCRIT 27.1 % (42.0-52.0); HEMOGLOBIN 8.3 g/dl (14.0-18.0); LYMPHOCYTES # 0.6 10^3/ul (0.8-2.9); LYMPHOCYTES % 13.1 % (15.0-51.0); MEAN CORPUSCULAR HEMOGLOBIN 27.1 pg (29.0-33.0); MEAN CORPUSCULAR HGB CONC 30.6 g/dl (32.0-37.0); MEAN CORPUSCULAR VOLUME 88.6 fl (82.0-101.0); MEAN PLATELET VOLUME 9.8 fl (7.4-10.4); MONOCYTE # 0.4 10^3/ul (0.3-0.9); MONOCYTES % 9.1 % (0.0-11.0); NEUTROPHIL # 3.1 10^3/ul (1.6-7.5); NEUTROPHILS % 73.1 % (39.0-77.0); PLATELET COUNT 167 10^3/UL (140-415); POSITIVE DIFF @See below; RED BLOOD COUNT 3.06 10^6/ul (4.70-6.10); RED CELL DISTRIBUTION WIDTH 14.7 % (11.5-14.5)
[2018-09-17 10:52] LABS: WHITE BLOOD COUNT 4.2 10^3/ul (4.8-10.8)
[2018-09-17 11:17] LABS: ANION GAP 5 (5-13); BLOOD UREA NITROGEN 17 mg/dl (7-20); CALCIUM 8.5 mg/dl (8.4-10.2); CARBON DIOXIDE 28 mmol/L (21-31); CHLORIDE 101 mmol/L (97-110); CREATININE 1.41 mg/dl (0.61-1.24); GLUCOSE 115 mg/dl (70-220); MAGNESIUM 1.6 mg/dl (1.7-2.5); POTASSIUM 3.9 mmol/L (3.5-5.1); SODIUM 134 mmol/L (135-144)
[2018-09-17] MEDS: MAGNESIUM SULFATE 2 GM/50 ML 50 ML IVPB (13:42)
[2018-09-17] MEDS: HYDROmorphONE 1 MG/ML SYG IV (18:35)
[2018-09-17] MEDS ORDERED: SOD CHLORIDE 0.9% 1,000 ML IV (19:00)
== END 2018-09-17 18:40 | disposition home health service (06) ==
LOC: E/R 08:39 → PP2 12:08
DX: K57.92 Diverticulitis of intestine, part unspecified, without perforation or abscess without bleeding (principal); N30.90 Cystitis, unspecified without hematuria; N17.9 Acute kidney failure, unspecified; Z86.718 Personal history of other venous thrombosis and embolism; Z86.73 Personal history of transient ischemic attack (TIA), and cerebral infarction without residual deficits; K52.9 Noninfective gastroenteritis and colitis, unspecified; I10 Essential (primary) hypertension; I48.91 Unspecified atrial fibrillation; L40.9 Psoriasis, unspecified; R11.2 Nausea with vomiting, unspecified; N40.0 Benign prostatic hyperplasia without lower urinary tract symptoms; Z96.0 Presence of urogenital implants; R33.9 Retention of urine, unspecified
CPT/HCPCS: 36415; 71045; 74176; 80048; 80076; 81001; 83605; 83690; 83735; 84484; 85025; 85610; 85730; 87040; 87081; 87086; 93005; 96374; 96375; 99285-25; G0378

== ENCOUNTER 2018-11-16 17:56 | Observation (INO) | payer OTHER ==
[2018-11-16 18:44] LABS: ADD MAN DIFF? NO
[2018-11-16] MEDS: FENTAnyl 50 MCG/ML VIAL IV ×2 (18:47→19:18)
[2018-11-16 18:49] LABS: BASOPHILS % 0.3 % (0.0-2.0); EOSINOPHILS # 0.1 10^3/ul (0.0-0.5); EOSINOPHILS % 1.3 % (0.0-7.0); HEMATOCRIT 29.1 % (42.0-52.0); HEMOGLOBIN 9.3 g/dl (14.0-18.0); LYMPHOCYTES # 1.1 10^3/ul (0.8-2.9); MEAN CORPUSCULAR VOLUME 87.7 fl (82.0-101.0); MEAN PLATELET VOLUME 9.6 fl (7.4-10.4); MONOCYTE # 0.7 10^3/ul (0.3-0.9); MONOCYTES % 7.7 % (0.0-11.0); NEUTROPHIL # 7.6 10^3/ul (1.6-7.5); NEUTROPHILS % 79.2 % (39.0-77.0); PLATELET COUNT 330 10^3/UL (140-415); RED BLOOD COUNT 3.32 10^6/ul (4.70-6.10); RED CELL DISTRIBUTION WIDTH 17.4 % (11.5-14.5)
[2018-11-16 18:49] LABS: WHITE BLOOD COUNT 9.6 10^3/ul (4.8-10.8)
[2018-11-16 18:55] LABS: ANION GAP 9 (5-13); BLOOD UREA NITROGEN 30 mg/dl (7-20); CALCIUM 9.3 mg/dl (8.4-10.2); CARBON DIOXIDE 28 mmol/L (21-31); CHLORIDE 99 mmol/L (97-110); CREATININE 1.23 mg/dl (0.61-1.24); GLUCOSE 94 mg/dl (70-220); POTASSIUM 5.3 mmol/L (3.5-5.1); SODIUM 136 mmol/L (135-144)
[2018-11-16 20:27] LABS: ADD UMIC YES; UR ASCORBIC ACID NEGATIVE (NEGATIVE); UR BACTERIA FEW /HPF (NONE SEEN); UR BILIRUBIN (Dip) NEGATIVE (NEGATIVE); UR BLOOD (Dip) 3+ mg/dL (NEGATIVE); UR CLARITY CLOUDY (CLEAR); UR COLOR RED (YELLOW); UR GLUCOSE (Dip) NEGATIVE (NEGATIVE); UR KETONES (Dip) TRACE mg/dL (NEGATIVE); UR LEUKOCYTE ESTERASE (Dip) 1+ Leu/ul (NEGATIVE); UR NITRITE (Dip) NEGATIVE (NEGATIVE); UR RBC > 182 /HPF (0-5); UR SPECIFIC GRAVITY (Dip) 1.011 (1.003-1.030); UR TOTAL PROTEIN (Dip) 3+ mg/dl (NEGATIVE); UR UROBILINOGEN (Dip) NEGATIVE (NEGATIVE); UR WBC > 182 /HPF (0-5)
[2018-11-16] MEDS ORDERED: ONDANSETRON 4 MG INJ IV (21:30)
[2018-11-16] MEDS ORDERED: ACETAMINOPHEN 325 MG TAB PO (21:30)
[2018-11-17] MEDS ORDERED: ACETAMINOPHEN 325 MG TAB PO
[2018-11-17] MEDS ORDERED: ONDANSETRON 4 MG INJ IV
[2018-11-17] MEDS: SOD CHLORIDE 0.9% 1,000 ML IV ×2 (00:41→08:41)
[2018-11-17] MEDS: CEFTRIAXONE 1 GM/50 ML (PMX) 50 ML IVPB (00:41)
[2018-11-17] MEDS ORDERED: metroNIDAZOLE 500 MG/NS (PMX) 100 ML IVPB (02:00)
[2018-11-17] MEDS ORDERED: VANCOMYCIN IV PER PHARMACY XX (02:00)
[2018-11-17] MEDS: metroNIDAZOLE 500 MG/NS (PMX) 100 ML IVPB ×3 (02:16→21:31)
[2018-11-17] MEDS: VANCOMYCIN HCL 1.25 GM in SOD CHLORIDE 0.9% 250 ML IVPB (03:53)
[2018-11-17 05:52] LABS: ADD MAN DIFF? NO
[2018-11-17 05:58] LABS: BASOPHILS % 0.4 % (0.0-2.0); EOSINOPHILS # 0.1 10^3/ul (0.0-0.5); EOSINOPHILS % 1.6 % (0.0-7.0); HEMATOCRIT 28.7 % (42.0-52.0); HEMOGLOBIN 8.9 g/dl (14.0-18.0); LYMPHOCYTES # 1.3 10^3/ul (0.8-2.9); LYMPHOCYTES % 15.3 % (15.0-51.0); MEAN CORPUSCULAR HEMOGLOBIN 27.6 pg (29.0-33.0); MEAN CORPUSCULAR VOLUME 89.1 fl (82.0-101.0); MEAN PLATELET VOLUME 9.5 fl (7.4-10.4); MONOCYTE # 0.7 10^3/ul (0.3-0.9); MONOCYTES % 8.8 % (0.0-11.0); NEUTROPHILS % 73.2 % (39.0-77.0); PLATELET COUNT 318 10^3/UL (140-415); RED BLOOD COUNT 3.22 10^6/ul (4.70-6.10); RED CELL DISTRIBUTION WIDTH 17.4 % (11.5-14.5)
[2018-11-17 05:58] LABS: WHITE BLOOD COUNT 8.2 10^3/ul (4.8-10.8)
[2018-11-17] MEDS: PANTOPRAZOLE (EC) 40 MG TAB PO ×2 (06:00→18:16)
[2018-11-17 06:18] LABS: ANION GAP 6 (5-13); BLOOD UREA NITROGEN 28 mg/dl (7-20); CALCIUM 9.1 mg/dl (8.4-10.2); CARBON DIOXIDE 28 mmol/L (21-31); CHLORIDE 99 mmol/L (97-110); CREATININE 1.33 mg/dl (0.61-1.24); GLUCOSE 92 mg/dl (70-220); POTASSIUM 4.9 mmol/L (3.5-5.1); SODIUM 133 mmol/L (135-144)
[2018-11-17] MEDS: morphine SULFATE/PF (2 MG/2 ML) SYG IV ×2 (08:09→16:51)
[2018-11-17] MEDS: CITALOPRAM 20 MG TAB PO (08:53)
[2018-11-17] MEDS: LACTOBACILLUS RHAMNOSUS CAP PO (08:53)
[2018-11-17] MEDS: FOLIC ACID 1 MG TAB PO (08:53)
[2018-11-17] MEDS: MYCOPHENOLATE 250 MG CAP PO (08:54)
[2018-11-17] MEDS: CHOLECALCIFEROL 1,000 UNIT TAB PO (08:54)
[2018-11-17] MEDS: LORATADINE 10 MG TAB PO (08:54)
[2018-11-17] MEDS: AMIODARONE 200 MG TAB PO (08:55)
[2018-11-17] MEDS: DOCUSATE SODIUM 10 MG/ML (10ML CUP) PO (09:00)
[2018-11-17] MEDS: SENNA LEAF EXTRACT 176 MG/5 ML SYRUP PO (09:12)
[2018-11-17] MEDS ORDERED: VANCOMYCIN 750 MG (PMX) 250 ML IVPB (16:00)
[2018-11-17 16:39] LABS: ANION GAP 8 (5-13); BLOOD UREA NITROGEN 28 mg/dl (7-20); CALCIUM 9.1 mg/dl (8.4-10.2); CARBON DIOXIDE 25 mmol/L (21-31); CHLORIDE 100 mmol/L (97-110); CREATININE 1.39 mg/dl (0.61-1.24); GLUCOSE 148 mg/dl (70-220); POTASSIUM 4.5 mmol/L (3.5-5.1); SODIUM 133 mmol/L (135-144)
[2018-11-17] MEDS: APIXABAN 5 MG TABLET PO (21:04)
[2018-11-17] MEDS: MYCOPHENOLATE MOFETIL 250 MG PO (21:04)
[2018-11-17] MEDS: ATORVASTATIN 40 MG TAB PO (21:04)
[2018-11-18] MEDS: CEFTRIAXONE 1 GM/50 ML (PMX) 50 ML IVPB (00:15)
[2018-11-18] MEDS ORDERED: VANCOMYCIN 750 MG (PMX) 250 ML IVPB (03:00)
[2018-11-18] MEDS: metroNIDAZOLE 500 MG/NS (PMX) 100 ML IVPB (05:36)
[2018-11-18] MEDS: MYCOPHENOLATE MOFETIL 250 MG PO (05:36)
[2018-11-18] MEDS: PANTOPRAZOLE (EC) 40 MG TAB PO (05:36)
[2018-11-18 06:06] LABS: ADD MAN DIFF? NO
[2018-11-18 06:11] LABS: BASOPHILS % 0.3 % (0.0-2.0); EOSINOPHILS # 0.2 10^3/ul (0.0-0.5); EOSINOPHILS % 2.4 % (0.0-7.0); HEMATOCRIT 28.7 % (42.0-52.0); LYMPHOCYTES # 0.7 10^3/ul (0.8-2.9); LYMPHOCYTES % 11.1 % (15.0-51.0); MEAN CORPUSCULAR HGB CONC 31.4 g/dl (32.0-37.0); MEAN CORPUSCULAR VOLUME 89.1 fl (82.0-101.0); MEAN PLATELET VOLUME 9.6 fl (7.4-10.4); MONOCYTE # 0.5 10^3/ul (0.3-0.9); MONOCYTES % 8.1 % (0.0-11.0); NEUTROPHIL # 5.1 10^3/ul (1.6-7.5); NEUTROPHILS % 77.3 % (39.0-77.0); PLATELET COUNT 276 10^3/UL (140-415); RED BLOOD COUNT 3.22 10^6/ul (4.70-6.10); RED CELL DISTRIBUTION WIDTH 17.2 % (11.5-14.5)
[2018-11-18 06:11] LABS: WHITE BLOOD COUNT 6.7 10^3/ul (4.8-10.8)
[2018-11-18 06:31] LABS: MAGNESIUM 1.8 mg/dl (1.7-2.5)
[2018-11-18 06:42] LABS: ANION GAP 8 (5-13); BLOOD UREA NITROGEN 28 mg/dl (7-20); CALCIUM 9.3 mg/dl (8.4-10.2); CARBON DIOXIDE 26 mmol/L (21-31); CHLORIDE 101 mmol/L (97-110); CREATININE 1.34 mg/dl (0.61-1.24); GLUCOSE 106 mg/dl (70-220); POTASSIUM 4.4 mmol/L (3.5-5.1); SODIUM 135 mmol/L (135-144)
[2018-11-18] MEDS: DOCUSATE SODIUM 10 MG/ML (10ML CUP) PO (08:20)
[2018-11-18] MEDS: LORATADINE 10 MG TAB PO (08:23)
[2018-11-18] MEDS: FOLIC ACID 1 MG TAB PO (08:23)
[2018-11-18] MEDS: CHOLECALCIFEROL 1,000 UNIT TAB PO (08:23)
[2018-11-18] MEDS: LACTOBACILLUS RHAMNOSUS CAP PO (08:23)
[2018-11-18] MEDS: AMIODARONE 200 MG TAB PO (08:24)
[2018-11-18] MEDS: CITALOPRAM 20 MG TAB PO (08:26)
[2018-11-18] MEDS: APIXABAN 5 MG TABLET PO (08:27)
[2018-11-18] MEDS: SENNA LEAF EXTRACT 176 MG/5 ML SYRUP PO (09:00)
[2018-11-18] MEDS: morphine SULFATE/PF (2 MG/2 ML) SYG IV (10:01)
[2018-11-18] MEDS ORDERED: MUPIROCIN 2% 22 GM OINT TOP (12:00)
[2018-11-18] MEDS: ERTAPENEM SODIUM 1 GM in SOD CHLORIDE 0.9% 100 ML IVPB (15:11)
== END 2018-11-18 17:03 | disposition home or self-care (01) ==
LOC: E/R 17:56 → PP2 21:07
DX: R31.0 Gross hematuria (principal); N39.0 Urinary tract infection, site not specified; Z16.12 Extended spectrum beta lactamase (ESBL) resistance; B96.20 Unspecified Escherichia coli [E. coli] as the cause of diseases classified elsewhere; I48.2 Chronic atrial fibrillation; Z79.01 Long term (current) use of anticoagulants; I25.10 Atherosclerotic heart disease of native coronary artery without angina pectoris; Z95.1 Presence of aortocoronary bypass graft; E78.5 Hyperlipidemia, unspecified; I69.391 Dysphagia following cerebral infarction; I69.322 Dysarthria following cerebral infarction; R13.10 Dysphagia, unspecified; L40.9 Psoriasis, unspecified; K21.9 Gastro-esophageal reflux disease without esophagitis; N17.9 Acute kidney failure, unspecified; R33.9 Retention of urine, unspecified; I50.30 Unspecified diastolic (congestive) heart failure
CPT/HCPCS: 36415; 74176; 76705; 80048; 81001; 83735; 85025; 87081; 87086; 96374; 96376; 99285-25; G0378

== ENCOUNTER 2018-11-30 09:28 | Emergency (ER) | payer OTHER ==
[2018-11-30] MEDS: ONDANSETRON 4 MG INJ IV (10:33)
[2018-11-30] MEDS: HYDROmorphONE 1 MG/ML SYG IV (10:34)
[2018-11-30 10:53] LABS: ADD MAN DIFF? NO
[2018-11-30 10:55] LABS: WHITE BLOOD COUNT 5.9 10^3/ul (4.8-10.8)
[2018-11-30 10:55] LABS: BASOPHILS % 0.5 % (0.0-2.0); EOSINOPHILS # 0.2 10^3/ul (0.0-0.5); EOSINOPHILS % 2.7 % (0.0-7.0); HEMATOCRIT 28.5 % (42.0-52.0); HEMOGLOBIN 8.9 g/dl (14.0-18.0); LYMPHOCYTES # 0.8 10^3/ul (0.8-2.9); MEAN CORPUSCULAR HEMOGLOBIN 27.6 pg (29.0-33.0); MEAN CORPUSCULAR HGB CONC 31.2 g/dl (32.0-37.0); MEAN CORPUSCULAR VOLUME 88.2 fl (82.0-101.0); MEAN PLATELET VOLUME 9.5 fl (7.4-10.4); MONOCYTE # 0.6 10^3/ul (0.3-0.9); MONOCYTES % 9.6 % (0.0-11.0); NEUTROPHIL # 4.3 10^3/ul (1.6-7.5); NEUTROPHILS % 73.9 % (39.0-77.0); PLATELET COUNT 240 10^3/UL (140-415); RED BLOOD COUNT 3.23 10^6/ul (4.70-6.10); RED CELL DISTRIBUTION WIDTH 16.6 % (11.5-14.5)
[2018-11-30 11:30] LABS: ALANINE AMINOTRANSFERASE 17 IU/L (13-69); ALBUMIN 3.5 g/dl (3.3-4.9); ALBUMIN/GLOBULIN RATIO 0.97; ALKALINE PHOSPHATASE 129 IU/L (42-121); ANION GAP 10 (5-13); ASPARTATE AMINO TRANSFERASE 21 IU/L (15-46); BILIRUBIN,INDIRECT 0.3 mg/dl (0-1.1); BILIRUBIN,TOTAL 0.3 mg/dl (0.2-1.3); BLOOD UREA NITROGEN 25 mg/dl (7-20); C-REACTIVE PROTEIN 1.1 mg/dl (0.0-0.9); CALCIUM 9.3 mg/dl (8.4-10.2); CARBON DIOXIDE 27 mmol/L (21-31); CHLORIDE 101 mmol/L (97-110); CREATININE 1.07 mg/dl (0.61-1.24); GLUCOSE 101 mg/dl (70-220); POTASSIUM 4.3 mmol/L (3.5-5.1); SODIUM 138 mmol/L (135-144); TOTAL PROTEIN 7.1 g/dl (6.1-8.1)
[2018-11-30 11:35] LABS: ADD UMIC YES; UR AMORPHOUS CRYSTAL FEW /HPF (NONE SEEN); UR ASCORBIC ACID NEGATIVE (NEGATIVE); UR BACTERIA FEW /HPF (NONE SEEN); UR BILIRUBIN (Dip) NEGATIVE (NEGATIVE); UR BLOOD (Dip) 3+ mg/dL (NEGATIVE); UR CLARITY CLOUDY (CLEAR); UR COLOR YELLOW (YELLOW); UR GLUCOSE (Dip) NEGATIVE (NEGATIVE); UR KETONES (Dip) NEGATIVE (NEGATIVE); UR LEUKOCYTE ESTERASE (Dip) TRACE Leu/ul (NEGATIVE); UR MUCUS FEW /HPF (NONE SEEN); UR NITRITE (Dip) NEGATIVE (NEGATIVE); UR RBC > 182 /HPF (0-5); UR SPECIFIC GRAVITY (Dip) 1.017 (1.003-1.030); UR TOTAL PROTEIN (Dip) 2+ mg/dl (NEGATIVE); UR UROBILINOGEN (Dip) NEGATIVE (NEGATIVE); UR WBC 28 /HPF (0-5)
[2018-11-30 11:39] LABS: TROPONIN-I 0.043 ng/ml (0.000-0.120)
== END 2018-11-30 21:23 | disposition home or self-care (01) ==
LOC: E/R 09:28
DX: N30.01 Acute cystitis with hematuria (principal); I10 Essential (primary) hypertension; F78 Other intellectual disabilities; Z86.73 Personal history of transient ischemic attack (TIA), and cerebral infarction without residual deficits; Z95.1 Presence of aortocoronary bypass graft
CPT/HCPCS: 36415; 71045; 73501; 73510; 73550; 73700; 80053; 81001; 84484; 85025; 86140; 93005; 93971; 96374; 96375; 99285-25